=== PATIENT | female | born 1970 | race Caucasian/White ===

== ENCOUNTER 2020-09-16 08:33 | Outpatient (NON) | payer OTHER, SELFPAY ==
[2020-09-16 20:46] LABS: SARS-CoV-2 RNA PCR Negative
== END 2020-09-16 08:34 ==
PROVIDERS: Visit Provider Family Medicine
DX: R68.89 Other general symptoms and signs (principal); Z20.828 Contact with and (suspected) exposure to other viral communicable diseases
CPT/HCPCS: 87635; C9803; U0003

== ENCOUNTER 2020-12-17 17:00 | Outpatient (CLI) | payer OTHER, SELFPAY | END 2020-12-17 17:01 | disposition home or self-care (01) | LOC: ANHCOVIDVC 17:00 | PROVIDERS: PCP Family Medicine; Visit Provider Family Medicine | DX: Z23 Encounter for immunization (principal) | CPT/HCPCS: 0001A; 91300 ==

== ENCOUNTER 2021-01-07 16:48 | Outpatient (CLI) | payer OTHER, SELFPAY | END 2021-01-07 16:49 | disposition home or self-care (01) | LOC: ANHCOVIDVC 16:48 | PROVIDERS: PCP Family Medicine | DX: Z23 Encounter for immunization (principal) | CPT/HCPCS: 0002A; 91300 ==

== ENCOUNTER 2021-07-11 08:22 | Outpatient (CLI) | payer OTHER, SELFPAY ==
--- NOTE | ~2021-07-11 | CT_ITS ---
EXAMINATION: CT abdomen pelvis w con DATE: 07/11/2021 08:41 INDICATION: Unspecified abdominal pain. TECHNIQUE: Computed tomography (CT) of the abdomen and pelvis was performed with 100 mL Omnipaque 350 intravenous contrast. Automated exposure control and iterative reconstruction technique were employe d. The dose-length product was 726.53 mGy-cm. COMPARISON: CT abdomen and pelvis 11/09/2016 FINDINGS: The visualized portions of the lung bases demonstrate mild atelectasis. No pleural effusion . The heart size is normal. No pericardial effusion. There is a moderate-sized sliding hiatal hernia. The liver, spleen, gallbladder, pancreas, adrenal glands, and right kidney are normal. There is a 5 mm cyst in left kidney. There are scattered diverticula in the colon. There is fat stranding around a diverticulum of sigmoid colon with local bowel wall thickening, consistent with diverticulitis. The appendix is normal. There are no dilated loops of bowel. There are no pathologically enlarged lymph n odes. There is trace pelvic ascites. There is severe lower lumbar spondylosis. IMPRESSION: 1. Acute sigmoid diverticulitis. No perforation or abscess. 2. Moderate-sized sliding hiatal hernia. Reviewed, dictated and finalized at location A.
[2021-07-11 09:21] LABS: Basophils Percent Auto 0.4 % (0.2-1.2); Eosinophils Absolute Auto 0.1 K/mm3 (0-0.3); Eosinophils Percent Auto 1.1 % (0-4.4); Hematocrit 41.7 % (37.0-47.0); Hemoglobin 14.1 g/dL (12.0-15.0); Immature Granulocyte Absolute 0.09 K/mm3 (0.00-0.031); Lymphocytes Absolute Auto 1.09 K/mm3 (0.9-3.2); Lymphocytes Percent Auto 11.8 % (18.3-44.2); Mean Corpuscular HGB Conc 33.8 g/dl (32-36); Mean Corpuscular Hemoglobin 32.3 pg (26-34); Mean Corpuscular Volume 95.4 fl (80-100); Mean Platelet Volume 9.4 fl (7.4-10.4); Monocytes Absolute Auto 0.8 K/mm3 (0.1-0.6); Monocytes Percent Auto 8.3 % (2.6-8.5); Neutrophils Absolute Auto 7.1 K/mm3 (1.3-6.7); Neutrophils Percent Auto 77.4 % (45.5-73.1); Platelet Count Result 174 k/mm3 (150-375); Red Blood Count 4.37 M/mm3 (4.2-5.4); Red Cell Distribution Width 11.7 % (11.5-14.5); White Blood Count 9.2 K/mm3 (4.5-10.0)
[2021-07-11 09:32] LABS: Alanine Aminotransferase 57 U/L (4-35); Albumin Level 4.4 g/dL (3.5-5.1); Alkaline Phosphatase 59 U/L (38-126); Anion Gap 8 mmol/L (8-16); Aspartate Amino Transferase 37 U/L (14-36); Bilirubin,Total 0.7 mg/dL (0.2-1.3); Blood Urea Nitrogen 12 mg/dL (7-17); Calcium 9.3 mg/dL (8.4-10.2); Carbon Dioxide 25 mmol/L (22-30); Chloride 103 mmol/L (98-107); Estimated Glomerular Filt Rate > 60; Glucose 94 mg/dL (65-110); Potassium 4.1 mmol/L (3.4-5.0); Sodium 136 mmol/L (137-145)
== END 2021-07-11 08:23 | disposition home or self-care (01) ==
PROVIDERS: PCP Family Medicine; Visit Provider Family Medicine
DX: R10.9 Unspecified abdominal pain (principal); K44.9 Diaphragmatic hernia without obstruction or gangrene; K57.32 Diverticulitis of large intestine without perforation or abscess without bleeding
CPT/HCPCS: 36415; 74177; 80053; 85025; Q9967

== ENCOUNTER 2021-09-13 14:49 | Inpatient (IN) | payer OTHER, SELFPAY ==
[2021-09-13] VITALS (13 sets, daily range): BP systolic 118–167; BP diastolic 78–102; PULSE 78–88; RESP 16–18; TEMP 36–37.3; O2SAT 96–99; BMI 27.6
--- NOTE | ~2021-09-13 | CT_ITS ---
EXAMINATION: CT abdomen pelvis w con DATE: 09/13/2021 15:56 INDICATION: Right lower quadrant abdominal pain TECHNIQUE: Computed tomography (CT) of the abdomen and pelvis was performed with 100 cc Omnipaque 350 intravenous contrast. The dose-length product was 763.08 mGy-cm. Automated exposure control and iter ative reconstruction technique were employed. COMPARISON: CT dated 07/11/2021. FINDINGS: There is moderate scattered free air in the abdomen and pelvis. Lung bases are unremarkable. There is moderate size hiatal hernia. Fatty infiltration of the liver. T he spleen, pancreas, adrenal glands and kidneys are unremarkable. Normal appendix. Small fat-containi ng umbilical hernia. There is colonic diverticulosis without evidence for acute diverticulitis. No si gnificant vascular abnormality. No lymphadenopathy. Gallbladder is present. IMPRESSION: 1. Moderate free air intraperitoneal air of the abdomen and pelvis presumably from perforated bowel, although no identifiable source is seen. Dr. Lambert Diggs discussed with Dr. Jaren Hsu MD at 09/13/2021 16:05 [employer]. Reviewed, dictated and finalized at location A. K [employer]ING CHECKER IMPRESSION: 1. Moderate free air intraperitoneal air of the abdomen and pelvis presumably f rom perforated bowel, although no identifiable source is seen. Dr. Lambert Diggs discussed with Dr. Jaren Hsu MD at 09/13/2021 16:05 [employer] .
[2021-09-13 15:27] LABS: Basophils Percent Auto 0.2 % (0.2-1.2); Eosinophils Percent Auto 0.4 % (0-4.4); Hematocrit 42.5 % (37.0-47.0); Hemoglobin 14.5 g/dL (12.0-15.0); Immature Granulocyte Absolute 0.05 K/mm3 (0.00-0.031); Immature Granulocyte Percent A 0.5 % (0-0.5); Lymphocytes Absolute Auto 1.19 K/mm3 (0.9-3.2); Lymphocytes Percent Auto 11.4 % (18.3-44.2); Mean Corpuscular HGB Conc 34.1 g/dl (32-36); Mean Corpuscular Hemoglobin 31.7 pg (26-34); Mean Platelet Volume 9.2 fl (7.4-10.4); Monocytes Absolute Auto 0.6 K/mm3 (0.1-0.6); Monocytes Percent Auto 5.5 % (2.6-8.5); Neutrophils Absolute Auto 8.6 K/mm3 (1.3-6.7); Platelet Count Result 188 k/mm3 (150-375); Red Blood Count 4.57 M/mm3 (4.2-5.4); Red Cell Distribution Width 11.3 % (11.5-14.5); White Blood Count 10.4 K/mm3 (4.5-10.0)
[2021-09-13 15:37] LABS: Alanine Aminotransferase 60 U/L (4-35); Albumin Level 4.8 g/dL (3.5-5.1); Alkaline Phosphatase 64 U/L (38-126); Anion Gap 10 mmol/L (8-16); Aspartate Amino Transferase 42 U/L (14-36); Bilirubin,Total 0.7 mg/dL (0.2-1.3); Blood Urea Nitrogen 16 mg/dL (7-17); Calcium 9.6 mg/dL (8.4-10.2); Carbon Dioxide 25 mmol/L (22-30); Chloride 102 mmol/L (98-107); Estimated CRCL calculation 73 ml/min; Estimated Glomerular Filt Rate > 60; Glucose 102 mg/dL (65-110); Lipase 88 U/L (23-300); Potassium 3.6 mmol/L (3.4-5.0); Sodium 137 mmol/L (137-145)
--- NOTE | 2021-09-13 16:25 | ED.GENADULT ---
HPI - General Adult General Chief complaint: Abdominal Pain Stated complaint: abdominal pain Time Seen by Provider: 09/13/21 15:10 History of Present Illness HPI narrative: Patient is a 51-year-old female who presents ER with right lower quadrant abdominal pain. Reports she was diagnosed with diverticulitis 2 months ago. She had taken a course of antibiotics. Symptoms returned earlier in the month and she took another round of antibiotics. She been doing well until yesterday when she started developing an upset stomach. Periumbilical and then radiating down his right lower quadrant today. She took 1 doses Afaxin without relief. No fevers or chills or sweats. No pressure radiating into her rectum. No diarrhea. Related Data Home Medications Medication Instructions Recorded Confirmed famotidine-Ca carb-mag hydrox 1 tablet PO DAILY PRN 09/13/21 09/13/21 [Pepcid Complete] ferrous sulfate [Iron (ferrous 60 mg PO DAILY 09/13/21 09/13/21 sulfate)] vitamin A-vitamin C-vit E-min 1 tablet PO DAILY 09/13/21 09/13/21 [Ocuvite] vitamin B complex [B 1,000 tablet PO DAILY 09/13/21 09/13/21 Complex-Vitamin B12] Allergies Allergy/AdvReac Type Severity Reaction Status Date / Time No Known Allergies Allergy Verified 09/13/21 14:58 Review of Systems Review of Systems: All systems reviewed & are unremarkable except as noted in HPI and below Constitutional: Constitutional: Denies chills, Denies fever(s) and Denies weakness Respiratory: Respiratory: Denies cough and Denies dyspnea Gastrointestinal: Gastrointestinal: Reports abdominal pain, Denies diarrhea, Denies nausea and Denies vomiting Genitourinary: Genitourinary: Denies nocturia, Denies dysuria and Denies flank pain PMF Past Medical History Medical History (Updated 09/13/21 @ 18:40 by Jaren Hsu MD) Abdominal pain Sigmoid diverticulitis Surgical History Surgical History (Updated 09/13/21 @ 18:38 by Jaren Hsu MD) No history of previous surgery Social History Social History Smoking status: Never smoker Alcohol intake: current Drinks per week: 1 Substance use: never Spiritual care concerns: No Exam Narrative: GENERAL: Well-appearing, well-nourished, and in no acute distress. HEAD: Normocephalic, atraumatic. CHEST: Clear to auscultation. No respiratory distress. HEART: Regular rate and rhythm. Normal peripheral pulses. ABDOMEN: Soft, mild to moderate tenderness bilateral lower quadrant right greater than left with mild right lower quadrant guarding, nondistended, normal active bowel sounds. EXTREMITIES: Normal range of motion. No edema. SKIN: Warm, dry, no rash. NEURO: Alert and oriented x3. PSYCH: Normal mood and affect. Course Course Emergency Course: Patient and family informed results. Discussed case with general surgery who will take the patient primarily on their service. Patient started on IV Zosyn. We will keep n.p.o. and hydrate. Vital Signs Vital signs: Vital Signs Temperature 99.1 F 09/13/21 14:55 Pulse Rate 81 09/13/21 14:55 Respiratory Rate 16 09/13/21 14:55 Blood Pressure 167/102 H 09/13/21 14:55 Pulse Oximetry 99 09/13/21 14:55 Temperature 97.7 F 09/13/21 17:56 Pulse Rate 88 09/13/21 17:56 Respiratory Rate 18 09/13/21 17:56 Blood Pressure 125/80 09/13/21 17:56 Pulse Oximetry 99 09/13/21 17:56 Medical Decision Making Vital Signs Vital Signs: Vital Signs Temperature 99.1 F 09/13/21 14:55 Pulse Rate 81 09/13/21 14:55 Respiratory Rate 16 09/13/21 14:55 Blood Pressure 167/102 H 09/13/21 14:55 Pulse Oximetry 99 09/13/21 14:55 Temperature 97.7 F 09/13/21 17:56 Pulse Rate 88 09/13/21 17:56 Respiratory Rate 18 09/13/21 17:56 Blood Pressure 125/80 09/13/21 17:56 Pulse Oximetry 99 09/13/21 17:56 Lab Data Result diagrams: 09/13/21 15:18 09/13/21 15:18
[2021-09-13 16:47] LABS: Add Urine Microscopic? YES; Appearance Urine Clear (Clear); Bilirubin Urine Negative (Negative); Blood Urine Negative (Negative); Color Urine Straw (Yellow); Glucose Urine UA Negative (Negative); Ketones Urine Trace mg/dL (Negative); Leukocyte Esterase Ur 1+ LEU/UL (Negative); Mucus Urine Rare /lpf; Nitrate Urine Negative (Negative); Protein Urine Negative (Negative); Squamous Epithelial Cell Urine Occasional /hpf (Few); Urobilinogen Urine Negative mg/dL (<2.0); WBC Urine 0-3 /hpf
--- NOTE | 2021-09-13 16:55 | PM.IMHP ---
H&P: HPI History of Present Illness Date/Time: 09/13/21 16:55 The patient is a 51-year-old female presenting to the emergency department complaining of abdominal pain. The patient reports the pain started yesterday and has been progressively worsening in nature. The patient reports the pain is mostly located in the right lower quadrant and epigastrium. She reports the pain has been associated with some nausea and poor appetite. The patient had been recently diagnosed with acute diverticulitis that improved with conservative management. The patient reports she has not quite felt normal since that episode. The patient reports that the pain during the diverticulitis was in her left lower quadrant and is different from the pain she is experiencing now. Chief Complaint: abdominal pain Review of Systems Constitutional: Constitutional: Denies anorexia, Denies chills, Reports fatigue, Denies fever(s), Denies increased appetite, Denies lethargy, Denies malaise, Reports poor appetite, Denies weakness, Denies weight gain and Denies weight loss Eyes: Eyes: Reports no additional eye complaints ENT: Reports system reviewed and no additional complaints, except as documented Cardiovascular: Cardiovascular: Reports no additional cardiovascular complaints Respiratory: Respiratory: Reports no additional respiratory complaints Gastrointestinal: Gastrointestinal: Reports as per HPI, Reports abdominal pain, Denies belching, Denies bloating, Denies change in bowel habits, Denies change in stool character, Denies constipation, Reports GI cramping, Reports heartburn, Denies diarrhea, Denies loose stools, Reports nausea and Denies vomiting Genitourinary: Genitourinary: Reports no additional female genitourinary complaints Musculoskeletal: Musculoskeletal: Reports no additional musculoskeletal complaints Integumentary/Breasts: Skin/Breast: Reports system reviewed and no additional complaints, except as docu Neurologic: Reports system reviewed and no additional complaints, except as documented Psychiatric: Psychiatric: Reports no additional psychiatric complaints Endocrine: Endocrine: Reports no additional endocrine complaints Hematologic/Lymphatic: Hematologic/Lymphatic: Reports no additional hematologic/lymphatic complaints Allergic/Immunologic: Allergic/Immunologic: Reports no additional allergic/immunologic complaints PMFSH Past Medical History Medical History Abdominal pain Sigmoid diverticulitis Social History Social History Smoking status: Never smoker Alcohol intake: current Drinks per week: 1 Substance use: never Spiritual care concerns: No Comments Surgical history - no abdominal surgeries FH - no h/o colorectal cancers, IBD SH - denies tobacco, ilicit drug use Meds Home Medications and Allergies Home Medications Medication Instructions Recorded Confirmed Type lansoprazole 30 mg capsule,delayed 30 mg PO BID #180 cap 05/13/20 09/13/21 Rx release famotidine-Ca carb-mag hydrox 1 tablet PO DAILY PRN 09/13/21 09/13/21 History [Pepcid Complete] ferrous sulfate [Iron (ferrous 60 mg PO DAILY 09/13/21 09/13/21 History sulfate)] vitamin A-vitamin C-vit E-min 1 tablet PO DAILY 09/13/21 09/13/21 History [Ocuvite] vitamin B complex [B 1,000 tablet PO DAILY 09/13/21 09/13/21 History Complex-Vitamin B12] Allergies Allergy/AdvReac Type Severity Reaction Status Date / Time No Known Allergies Allergy Verified 09/13/21 14:58 Vital Signs Vital Signs - 24 hr 09/13/21 14:55 Temperature 37.3 C Pulse Rate 81 Respiratory Rate 16 Blood Pressure 167/102 H Pulse Oximetry 99 Exam Const: General: cooperative, healthy appearing, no acute distress and tired appearing Nutritional Appearance: overweight Orientation/consciousness: patient oriented x3 Limitations: no limitations HENMT: Head: nor
[2021-09-13] MEDS: SODIUM CHLORIDE 0.9% IV 1,000 ML 125 ML IV CONT ×2 (17:01→18:02)
[2021-09-13 17:07] LABS: Specific Grav Ur 1.047 (1.001-1.035)
[2021-09-13] MEDS: MELATONIN 5 MG TABLET PO (21:59)
[2021-09-13] MEDS: MORPHINE SULFATE (*CRX) 4 MG/ML INJ IV PUSH (22:06)
[2021-09-13] MEDS: ONDANSETRON INJ 4 MG/2 ML VIAL IV PUSH (22:08)
[2021-09-14] MEDS: SODIUM CHLORIDE 0.9% IV 1,000 ML 125 ML IV CONT (02:57)
[2021-09-14 03:52] VITALS: BP 104/57; PULSE 77; RESP 17; TEMP 37.1; O2SAT 96
[2021-09-14 05:34] LABS: Basophils Percent Auto 0.3 % (0.2-1.2); Eosinophils Absolute Auto 0.1 K/mm3 (0-0.3); Eosinophils Percent Auto 0.6 % (0-4.4); Hematocrit 38.3 % (37.0-47.0); Hemoglobin 12.9 g/dL (12.0-15.0); Immature Granulocyte Absolute 0.05 K/mm3 (0.00-0.031); Immature Granulocyte Percent A 0.6 % (0-0.5); Lymphocytes Absolute Auto 0.82 K/mm3 (0.9-3.2); Lymphocytes Percent Auto 10.4 % (18.3-44.2); Mean Corpuscular HGB Conc 33.7 g/dl (32-36); Mean Corpuscular Hemoglobin 31.8 pg (26-34); Mean Corpuscular Volume 94.3 fl (80-100); Mean Platelet Volume 9.1 fl (7.4-10.4); Monocytes Absolute Auto 0.6 K/mm3 (0.1-0.6); Monocytes Percent Auto 7.2 % (2.6-8.5); Neutrophils Absolute Auto 6.4 K/mm3 (1.3-6.7); Neutrophils Percent Auto 80.9 % (45.5-73.1); Platelet Count Result 158 k/mm3 (150-375); Red Blood Count 4.06 M/mm3 (4.2-5.4); Red Cell Distribution Width 11.3 % (11.5-14.5); White Blood Count 7.9 K/mm3 (4.5-10.0)
[2021-09-14 06:02] LABS: Anion Gap 6 mmol/L (8-16); Blood Urea Nitrogen 9 mg/dL (7-17); Calcium 8.7 mg/dL (8.4-10.2); Carbon Dioxide 26 mmol/L (22-30); Chloride 106 mmol/L (98-107); Estimated CRCL calculation 73 ml/min; Estimated Glomerular Filt Rate > 60; Glucose 97 mg/dL (65-110); Potassium 3.8 mmol/L (3.4-5.0); Sodium 138 mmol/L (137-145)
--- NOTE | 2021-09-14 08:15 | PM.DS ---
DS: Admitting Diagnosis Discharge Date 09/14/2021 Admitting Diagnosis abdominal pain, perforated intra-abdominal viscus DS: Discharge Diagnosis Discharge Diagnosis (1) Perforated abdominal viscus: Code(s): R19.8 - Other specified symptoms and signs involving the digestive system and abdomen Status: Acute Assessment and Plan: benign exam, tolerating diet and having normal bowel function, home with p.o. antibiotics, plan for repeat imaging in the next week, follow-up after repeat CT DS: Summary Hospital Course Reason for hospitalization: perforated intra-abdominal viscus Hospital Course: The patient is a 51-year-old female presenting to the emergency department complaining right-sided abdominal pain. Workup in the emergency department, including CT scan, was significant for perforated intra-abdominal viscus. Given these findings, added to the surgical service, NPO, and started on IV antibiotics. Over the next day, the patient reports significant improvement of her abdominal pain. She was started on a diet, which she tolerated without issue. The patient has been up and ambulating without issue. The patient reports minimal to no pain and has really not received any analgesia. At this time, the patient will be discharged home with p.o. antibiotics. Plan is for repeat imaging in the next week. Will follow up with me after imaging. Status at Discharge Functional status at discharge: independent ambulation Overall status at discharge: patient is progressing back to baseline Time Spent with Patient Time attestation: Total time spent providing and/or coordinating discharge services: Time spent: Less than 30 minutes Exam Const: General: cooperative, comfortable and no acute distress Nutritional Appearance: overweight Orientation/consciousness: patient oriented x3 Limitations: no limitations Neck: Neck: normal visual inspection, full ROM and no lymphadenopathy Chest: Chest palpation & inspection: normal inspection of the chest Resp: Effort & Inspection: normal respiratory effort Auscultation: clear to auscultation bilaterally Cardio: Jugular venous distension: no JVD Rate: regular rate Rhythm: regular rhythm GI: Inspection: normal to inspection and non-distended GI Palp: No abdominal tenderness, Yes Soft to palpation, Yes Tenderness to palpation present (GI), No Guarding due to palpation present (GI) and No Rigid due to palpation Other: minimal TTP RUQ DS: Data Data Completed and Pending Labs on day of discharge: Labs from last 24 hours 09/14/21 09/14/21 09/13/21 05:15 05:15 16:38 WBC 7.9 RBC 4.06 L Hgb 12.9 Hct 38.3 MCV 94.3 MCH 31.8 MCHC 33.7 RDW 11.3 L Plt Count 158 MPV 9.1 Immature Gran % (Auto) 0.6 H Neut % (Auto) 80.9 H Lymph % (Auto) 10.4 L Wink[place] % (Auto) 7.2 Eos % (Auto) 0.6 Baso % (Auto) 0.3 Lymph # (Auto) 0.82 L [place]ink[place] # (Auto) 0.6 Eos # (Auto) 0.1 Baso # (Auto) 0.0 Abs Immat Gran (auto) 0.05 H Absolute Neuts (auto) 6.4 Absolute Nucleated RBC 0.0 Nucleated RBC % 0.0 Sodium 138 Potassium 3.8 Chloride 106 Carbon Dioxide 26 Anion Gap 6 L BUN 9 D Creatinine 0.80 Estim Creat Clear Calc 73 Estimated GFR > 60 Glucose 97 Calcium 8.7 Total Bilirubin AST ALT Alkaline Phosphatase Total Protein Albumin Lipase Urine Color Straw Urine Appearance Clear Urine pH 5.0 Ur Specific [place] 1.047 H Urine Protein Negative Urine Glucose (UA) Negative Urine Ketones Trace Ur Blood (Man) Negative Urine Nitrate Negative Urine Bilirubin Negative Urine Urobilinogen Negative Leukocyte Esterase Rfl 1+ H Urine RBC 3-5 H Urine WBC 0-3 Ur Squamous Epith Cells Occasional Urine Mucus Rare 09/13/21 09/13/21 15:18 15:18 WBC 10.4 H RBC 4.57 Hgb 14.5 Hct 42.5 MCV 93.0 MCH 31.7 MCHC 34[address]
== END 2021-09-14 13:17 | disposition home or self-care (01) | DRG 392 ==
LOC: ANHED 15:36 → ANH2MED 17:06
PROVIDERS: Admitting Provider Surgery; Emergency Provider Emergency Medicine; PCP Family Medicine; Visit Provider Surgery
DX: R19.8 Other specified symptoms and signs involving the digestive system and abdomen (principal); Z28.21 Immunization not carried out because of patient refusal; Z79.899 Other long term (current) drug therapy; Z87.19 Personal history of other diseases of the digestive system
CPT/HCPCS: 36415; 74177; 80048; 80053; 81001; 83690; 85025; 96375; 99285; A9270; G0378; J0131; J2270; J2405; J2543; J7030; Q9967

== ENCOUNTER 2021-12-15 11:15 | Outpatient (CLI) | payer OTHER, SELFPAY ==
[2021-12-15 12:09] LABS: Free T4 Free Thyroxine 0.85 ng/mL (0.78-2.19); Vitamin D 25 Hydroxy 71.3 ng/mL
[2021-12-15 12:21] LABS: Thyroid Stimulating Hormone 0.868 uIU/mL (0.465-4.680)
[2021-12-15 12:44] LABS: Vitamin B12 > 1000.0 pg/mL (239-931)
[2021-12-18 04:16] LABS: Triiodothyronine T3 Free 3.4 pg/mL (2.3-4.2)
== END 2021-12-15 11:16 | disposition home or self-care (01) ==
PROVIDERS: PCP Family Medicine; Visit Provider Family Medicine
DX: E55.9 Vitamin D deficiency, unspecified (principal); R53.83 Other fatigue; E53.8 Deficiency of other specified B group vitamins
CPT/HCPCS: 36415; 82306; 82607; 84439; 84443; 84481

== ENCOUNTER 2022-01-23 09:15 | Outpatient (CLI) | payer OTHER, SELFPAY ==
--- NOTE | ~2022-01-23 | XR_ITS ---
EXAMINATION: [id number], XR foot RT min 3V EXAM DATE: 01/23/2022 09:43 INDICATION: Right foot pain, no known recent injury. TECHNIQUE: Right foot standing dorsoplantar, lateral and oblique projections obtained and reviewed. Right foot nonweightbearing dorsal plantar, oblique, lateral projections. There is no prior study for comparison. FINDINGS: Right metatarsal bones unremarkable. There is tiny inferior calcaneal spur. There are no bony erosions identified. There is mild 1st metatarsophalangeal joint primary osteoarthritis. Pes pl anus on the standing weight-bearing projection. There are no acute fractures or dislocations identifi ed. There is no subcutaneous gas. The soft tissue is unremarkable. There are no radiopaque foreig n bodies. IMPRESSION: 1. 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 2. Pes planus. 3. Tiny inferior calcaneal spur. Reviewed, dictated and finalized at location A. IMPRESSION: 1. 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 2. Pes planus. 3. Tiny inferior calcaneal spur.
== END 2022-01-23 09:16 | disposition home or self-care (01) ==
LOC: ANHIMG 09:18
PROVIDERS: PCP Family Medicine; Visit Provider Family Medicine
DX: M79.671 Pain in right foot (principal); M21.41 Flat foot [pes planus] (acquired), right foot; M19.071 Primary osteoarthritis, right ankle and foot
CPT/HCPCS: 73630

== ENCOUNTER → 2022-02-06 17:57 | Outpatient (CLI) | payer OTHER, SELFPAY ==
--- NOTE | ~2022-02-06 | DEXA_ITS ---
Bone Density Report Name: HEBER ANSARI Age: 51 Sex: Female Ethnicity: White Date of : 1970 Indication: postmenopausal; screening for osteoporosis; Referring Provider: JOANIE BA Study: Bone densitometry was performed. Exam Date: February 06, 2022 Accession number: [id number] Bone Density: Region BMD T-score Z-score Classification AP Spine (L1-L4) 1.026 -0.2 0.7 Normal Femoral Neck (Left) 0.812 -0.3 0.5 Normal Total Hip (Left) 0.975 0.3 0.8 Normal Femoral Neck (Right) 0.783 -0.6 0.2 Normal Total Hip (Right) 0.950 0.1 0.6 Normal Total Hip Mean 0.963 0.2 0.7 Normal World Health Organization criteria for BMD impression classify patients as: Normal (T-score at or above -1.0), Osteopenia (T-score between -1.0 and -2.5), or Osteoporosis (T-score at or below -2.5). 10-year Fracture Risk: FRAX not reported because: All T-scores for Spine Total, Hip Total, Femoral Neck at or above -1.0 Clinical Information Provided by Patient: Has used the following medications: Vitamin D Patient maximum height was 68.7 Menopause Age: 50 Drinks caffeinated beverages Onset of menses at age 12 Number of children 3 Impression: The patient has normal bone mass. Discussion: BONE DENSITY IS ABOVE THE MINIMUM DESIRABLE LEVEL AT ALL SKELETAL SITES TESTED. This patient?s bone mineral density is above the minimum desirable level (T-score -1.0 or better) at all sites measured. The patient should follow a healthful lifestyle (good nutrition with adequate calcium and vitamin D, and appropriate weight-bearing exercise). Follow-Up: Consider repeating this study in 5 years or sooner if there is some new clinical indication. Reported by: MELO on 02/06/2022 6:34:00 PM. Reviewed, dictated and finalized at location AFrancois [facility]
== END ==
PROVIDERS: PCP Family Medicine; Visit Provider Obstetrics & Gynecology Gynecology
DX: Z13.820 Encounter for screening for osteoporosis (principal); Z78.0 Asymptomatic menopausal state
CPT/HCPCS: 77080

== ENCOUNTER → 2022-03-09 10:23 | Outpatient (CLI) | payer OTHER, SELFPAY ==
--- NOTE | ~2022-03-09 | MM_ITS ---
EXAMINATION: MM screening earnest BI w donna HISTORY: Screening mammogram TECHNIQUE: Craniocaudal and mediolateral oblique 3-D tomosynthesis images were obtained and synthetic 2-D images were generated. CAD analysis was submitted and interpreted. COMPARISON: 08/30/2019 diagnostic right mammogram 09/05/2019 bilateral screening mammogram 04/18/2018 bilateral diagnostic mammogram BREAST PARENCHYMAL COMPOSITION: The breasts are almost entirely fatty. FINDINGS: There is no evidence of suspicious mass, calcification, or architectural distortion to sugg est malignancy in either breast. There has been no suspicious interval change. IMPRESSION: 1. No mammographic evidence of malignancy. 2. Recommend routine screening mammography in one year. BI-RADS Category 1: Negative Reviewed, dictated and finalized at location A.
== END ==
PROVIDERS: PCP Family Medicine; Visit Provider Obstetrics & Gynecology Gynecology
DX: Z12.31 Encounter for screening mammogram for malignant neoplasm of breast (principal)
CPT/HCPCS: 77063; 77067

== ENCOUNTER 2022-09-14 11:02 | Outpatient (CLI) | payer OTHER, SELFPAY ==
[2022-09-14 19:53] LABS: Hematocrit 44.3 % (37.0-47.0); Hemoglobin 14.4 g/dL (12.0-15.0); Mean Corpuscular HGB Conc 32.5 g/dl (32-36); Mean Corpuscular Hemoglobin 30.7 pg (26-34); Mean Corpuscular Volume 94.5 fl (80-100); Mean Platelet Volume 9.6 fl (7.4-10.4); Platelet Count Result 219 k/mm3 (150-375); Red Blood Count 4.69 M/mm3 (4.2-5.4)
[2022-09-14 20:17] LABS: Anion Gap 10 mmol/L (8-16); Blood Urea Nitrogen 16 mg/dL (7-17); Calcium 9.5 mg/dL (8.4-10.2); Carbon Dioxide 26 mmol/L (22-30); Chloride 104 mmol/L (98-107); Estimated Glomerular Filt Rate > 60; Glucose 87 mg/dL (65-110); Potassium 4.6 mmol/L (3.4-5.0); Sodium 140 mmol/L (137-145)
[2022-09-14 20:33] LABS: Vitamin D 25 Hydroxy 42.4 ng/mL
== END 2022-09-14 11:03 | disposition home or self-care (01) ==
LOC: ANHGOSHLAB 11:04
PROVIDERS: PCP Family Medicine; Visit Provider Family Medicine
DX: R53.83 Other fatigue (principal); E53.8 Deficiency of other specified B group vitamins; E55.9 Vitamin D deficiency, unspecified
CPT/HCPCS: 36415; 80048; 82306; 82607; 84443; 85027

== ENCOUNTER → 2023-07-29 12:31 | Outpatient (CLI) | payer OTHER, SELFPAY ==
--- NOTE | ~2023-07-29 | MM_ITS ---
EXAMINATION: MM screening earnest BI w donna HISTORY: Screening mammogram TECHNIQUE: Craniocaudal and mediolateral oblique 3-D tomosynthesis images were obtained and synthetic 2-D images were generated. CAD analysis was submitted and interpreted. COMPARISON: 03/09/2022, bilateral screening mammogram 09/16/2019 diagnostic right mammogram 09/05/2019 bilateral screening mammogram BREAST PARENCHYMAL COMPOSITION: FINDINGS: There is no evidence of suspicious mass, calcification, or architectural distortion to sugg est malignancy in either breast. There has been no suspicious interval change. IMPRESSION: 1. No mammographic evidence of malignancy. 2. Recommend routine screening mammography in one year. BI-RADS Category 1: Negative Reviewed, dictated and finalized at location A.
== END ==
PROVIDERS: PCP Obstetrics & Gynecology; Visit Provider Obstetrics & Gynecology
DX: Z12.31 Encounter for screening mammogram for malignant neoplasm of breast (principal)
CPT/HCPCS: 77063; 77067

== ENCOUNTER 2023-07-29 13:13 | Outpatient (CLI) | payer OTHER, SELFPAY ==
[2023-07-29 15:00] LABS: Basophils Percent Auto 0.7 % (0.2-1.2); Eosinophils Absolute Auto 0.1 K/mm3 (0-0.3); Eosinophils Percent Auto 1.9 % (0-4.4); Hematocrit 44.2 % (37.0-47.0); Hemoglobin 14.5 g/dL (12.0-15.0); Immature Granulocyte Absolute 0.08 K/mm3 (0.00-0.031); Immature Granulocyte Percent A 1.4 % (0-0.5); Lymphocytes Absolute Auto 1.39 K/mm3 (0.9-3.2); Lymphocytes Percent Auto 24.6 % (18.3-44.2); Mean Corpuscular HGB Conc 32.8 g/dl (32-36); Mean Corpuscular Hemoglobin 30.5 pg (26-34); Mean Corpuscular Volume 93.1 fl (80-100); Mean Platelet Volume 9.3 fl (7.4-10.4); Monocytes Absolute Auto 0.4 K/mm3 (0.1-0.6); Monocytes Percent Auto 7.6 % (2.6-8.5); Neutrophils Absolute Auto 3.6 K/mm3 (1.3-6.7); Neutrophils Percent Auto 63.8 % (45.5-73.1); Platelet Count Result 235 k/mm3 (150-375); Red Blood Count 4.75 M/mm3 (4.2-5.4); Red Cell Distribution Width 11.8 % (11.5-14.5); White Blood Count 5.7 K/mm3 (4.5-10.0)
[2023-07-29 16:30] LABS: Vitamin D 25 Hydroxy 88.6 ng/mL
[2023-07-29 17:03] LABS: Iron 107 ug/dL (37-170)
[2023-07-29 17:20] LABS: Percent Iron Saturation 32 % (20-50)
[2023-07-29 19:34] LABS: Alanine Aminotransferase 33 U/L (6-35); Albumin Level 4.8 g/dL (3.5-5.1); Alkaline Phosphatase 59 U/L (38-126); Anion Gap 6 mmol/L (8-16); Aspartate Amino Transferase 30 U/L (14-36); Bilirubin,Total 0.6 mg/dL (0.2-1.3); Blood Urea Nitrogen 22 mg/dL (7-17); Carbon Dioxide 30 mmol/L (22-30); Chloride 102 mmol/L (98-107); Estimated Glomerular Filt Rate > 60; Glucose 70 mg/dL (65-110); Potassium 4.2 mmol/L (3.4-5.0); Sodium 138 mmol/L (137-145)
[2023-07-29 20:01] LABS: Thyroid Stimulating Hormone 0.933 uIU/mL (0.465-4.680)
[2023-08-01 16:24] LABS: Testosterone Free 1.8 pg/mL (0.1-6.4); Testosterone Total 21 ng/dL (2-45)
== END 2023-07-29 13:14 | disposition home or self-care (01) ==
PROVIDERS: PCP Obstetrics & Gynecology; Visit Provider Family Medicine
DX: D64.9 Anemia, unspecified (principal); E53.8 Deficiency of other specified B group vitamins; R53.83 Other fatigue; R68.82 Decreased libido; E55.9 Vitamin D deficiency, unspecified
CPT/HCPCS: 36415; 80053; 82306; 82607; 83540; 83550; 84402; 84403; 84443; 85025

== ENCOUNTER 2023-09-20 08:49 | Outpatient (CLI) | payer OTHER, SELFPAY ==
--- NOTE | ~2023-09-20 | MR_ITS ---
MRI of the right knee Clinical history: Lateral meniscus tear Technique: Coronal proton density and proton density-weighted images, sagittal proton-density and T2 fat-sat images, and axial proton-density fat-saturated images were acquired. Findings: Anterior and posterior cruciate ligaments are intact. Medial collateral ligament and the la teral collateral again compress are intact. Popliteus tendon is intact. Medial meniscus is intact, without evidence of tear. There is horizontal tear involving the anterior horn and body of the lateral meniscus, and possibly extending into the posterior horn as well. Articular cartilage is well preserved throughout the knee. Bone marrow signals are unremarkable. Mini mal lateral joint line osteophytes are present. Extensor mechanism is intact. No significant joint effusion or Anaya's cyst. Impression: Horizontal tear of the anterior horn and body of the lateral meniscus, with possible extension to the posterior horn as well. Minimal lateral joint line osteophytes. Reviewed, dictated and finalized at [facility]. CHECKER Impression: Horizontal tear of the anterior horn and body of the lateral meniscus, with pos sible extension to the posterior horn as well. Minimal lateral joint line osteophytes.
== END 2023-09-20 08:50 ==
PROVIDERS: PCP Family Medicine; Visit Provider Orthopaedic Surgery
DX: S83.281A Other tear of lateral meniscus, current injury, right knee, initial encounter (principal); X58.XXXA Exposure to other specified factors, initial encounter
CPT/HCPCS: 73721

== ENCOUNTER 2023-10-08 14:00 | Outpatient (RCR) | payer OTHER, SELFPAY ==
--- NOTE | 2023-09-29 09:58 | OPREHPOC ---
Outpatient Therapy Plan of Care This is a Multidisciplinary Plan of Care that may contain components documented by all disciplines (PT, OT, and ST.) PT Problem 1 PT Problem #1 Knowledge Deficit PT Goal 1 Goal 1. Patient will perform independent HEP Target Visit 8 PT Problem 2 PT Problem #2 Pain PT Goal 1 Goal 1. Patient able to do all work and exercise activities without pain Target Visit 8 PT Problem 3 PT Problem #3 Impaired Strength PT Goal 1 Goal 1. Good knee alignment bilaterally with single limb step down Target Visit 8
--- NOTE | 2023-09-29 09:58 | PTOPEVAL1 ---
Assessment and note entered by Meredith Stephens DPT Evaluation Information Assessment Status Evaluation Subjective Information Pt reports she has R knee pain ongoing for several years, especially with twisting motions like getting out of the car. Noticed it got worse after starting weight training, saw Dr. Khan who diagnosed a meniscal tear and gave her an injection (which has helped). No plans for surgery at the moment but may be a candidate. Highest pain recently 3/10 and lowest 0/10. Unable to cross her legs to put shoes on until after the injection. Has not been able to do her normal exercise routine. 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 Returns to MD is not scheduled currently. Patient goal: avoid surgery if possible, see what I can do on my own, get back to normal exercise routine Reported Pain Level Pain Score 0: Self Report Assessment PT Clinical Summary The patient is presenting to skilled therapy with a history of right knee pain. She presents with decreased LE functional strength and tenderness to palpation of joint line. These impairments are contributing to her pain and difficulty with activities like twisting and performing her normal work and exercise activities. She will highly benefit from therapy to address these impairments and return to full function. Plan of Care Interventions Electrical Stimulation,Hot Pack/Cold Pack,Manual Therapy,Neuro Re-education,Patient/Caregiver Education,Therapeutic Activities,Therapeutic Exercise PT Services Indicated Yes Treatment Frequency and 1-2 times a week for 8 visits Duration These treatments will address the objective and functional deficits as defined above. The patient will be advanced safely and appropriately in order for the patient to progress towards his/her prior level of function. Additional exercises will be introduced and as well as a comprehensive home exercise program upon discharge, if needed, ?to ensure carryover of functional gains achieved in the clinic. This treatment plan has been reviewed and agreement upon by the patient.
--- NOTE | 2023-10-14 10:42 | PCPTNOTE ---
Patient called & cancelled scheduled appointment this date due to double booking her appointments.
--- NOTE | 2023-10-20 09:32 | PTOPDC ---
Assessment and note entered by Mariam Jimenez, PT, DPT Evaluation Information Assessment Status Discharge - Pt Not Present Diagnosis R knee pain Subjective Information Pt called and cancelled her remaining appointments d/t scheduling conflicts. Called and followed up with the pt. She states her exercises are helping and she does not need to return to therapy. Assessment PT Clinical Summary Pt was evaluated on 09/29/23 and completed 1 follow up appointment. She will be discharged at this time per pt request.
== END 2023-10-20 14:23 | disposition home or self-care (01) ==
LOC: ANHGOSHPT 14:00
PROVIDERS: PCP Family Medicine; Visit Provider Orthopaedic Surgery
DX: S83.281D Other tear of lateral meniscus, current injury, right knee, subsequent encounter (principal)
CPT/HCPCS: 97110; 97140; 97161; 97530

== ENCOUNTER 2024-04-07 07:32 | Outpatient (CLI) | payer OTHER, SELFPAY ==
--- NOTE | ~2024-04-07 | XR_ITS ---
EXAMINATION: XR chest 2V 04/07/2024 08:34 INDICATION: Vitamin B12 deficiency. PROCEDURE: 2 view chest COMPARISON: No prior studies for comparison. FINDINGS: The lungs are clear. The cardiomediastinal silhouette is within normal limits. There are no pleural effusions. There is no pneumothorax suspected. There is a large hiatal hernia. IMPRESSION: 1: NO ACUTE CARDIOPULMONARY DISEASE. Reviewed, dictated and finalized at location B.
[2024-04-07 08:26] LABS: Alanine Aminotransferase 32 U/L (6-35); Albumin Level 4.8 g/dL (3.5-5.1); Alkaline Phosphatase 61 U/L (38-126); Anion Gap 8 mmol/L (4-12); Aspartate Amino Transferase 30 U/L (14-36); Bilirubin,Total 0.6 mg/dL (0.2-1.3); Blood Urea Nitrogen 21 mg/dL (7-17); CRP < 0.5 mg/dL (<1.0); Calcium 9.3 mg/dL (8.4-10.2); Carbon Dioxide 26 mmol/L (22-30); Chloride 106 mmol/L (98-107); Cholesterol 218 mg/dL (0-200); Estimated Glomerular Filt Rate > 60; Glucose 90 mg/dL (65-110); HDL Direct 51 mg/dL; Potassium 4.1 mmol/L (3.4-5.0); Sodium 140 mmol/L (137-145); Triglycerides 118 mg/dL (<150)
[2024-04-07 08:35] LABS: LDL Cholesterol Direct 136 mg/dL
[2024-04-07 08:41] LABS: Rheumatoid Factor < 12.0 IU/ML (<12)
[2024-04-07 08:47] LABS: Thyroid Stimulating Hormone 0.739 uIU/mL (0.465-4.680)
[2024-04-07 08:51] LABS: Basophils Percent Auto 0.7 % (0.2-1.2); Eosinophils Absolute Auto 0.1 K/mm3 (0-0.3); Eosinophils Percent Auto 1.6 % (0-4.4); Hematocrit 42.9 % (37.0-47.0); Hemoglobin 14.3 g/dL (12.0-15.0); Immature Granulocyte Absolute 0.05 K/mm3 (0.00-0.031); Immature Granulocyte Percent A 1.1 % (0-0.5); Lymphocytes Absolute Auto 0.99 K/mm3 (0.9-3.2); Lymphocytes Percent Auto 22.2 % (18.3-44.2); Mean Corpuscular HGB Conc 33.3 g/dl (32-36); Mean Corpuscular Hemoglobin 30.6 pg (26-34); Mean Corpuscular Volume 91.9 fl (80-100); Mean Platelet Volume 9.3 fl (7.4-10.4); Monocytes Absolute Auto 0.4 K/mm3 (0.1-0.6); Monocytes Percent Auto 7.9 % (2.6-8.5); Neutrophils Percent Auto 66.5 % (45.5-73.1); Platelet Count Result 217 k/mm3 (150-375); Red Blood Count 4.67 M/mm3 (4.2-5.4); Red Cell Distribution Width 11.9 % (11.5-14.5); White Blood Count 4.5 K/mm3 (4.5-10.0)
[2024-04-07 09:34] LABS: Erythrocyte Sedimentation Rate 5 mm/hr (0-20)
[2024-04-07 14:06] LABS: Rapid Plasma Reagin Non-Reactive (NonReactive)
[2024-04-10 11:49] LABS: Angiotensin Converting Enzyme 48 U/L (9-67)
[2024-04-11 06:57] LABS: Reference Lab Test Name Lysozyme
[2024-04-11 06:58] LABS: Reference Lab Test Result 6.3
[2024-04-11 14:09] LABS: NIL 0.04 IU/mL; Quantiferon TB Plus, 1T NEGATIVE (NEGATIVE)
[2024-04-13 22:04] LABS: Treponema pallidum Ab FTA ABS NON-REACTIVE
== END 2024-04-07 07:33 | disposition home or self-care (01) ==
PROVIDERS: PCP Family Medicine
DX: Z13.220 Encounter for screening for lipoid disorders (principal); R53.83 Other fatigue; E53.8 Deficiency of other specified B group vitamins; H20.00 Unspecified acute and subacute iridocyclitis
CPT/HCPCS: 36415; 71046; 80053; 80061; 82164; 82607; 84443; 85025; 85652; 86038; 86039; 86140; 86430; 86480; 86592; 86780

== ENCOUNTER 2024-04-07 13:00 | Outpatient (CLI) | payer OTHER, SELFPAY ==
--- NOTE | ~2024-04-07 | MR_ITS ---
EXAMINATION: MR brain/brain stem wo/w con DATE: 04/07/2024 14:00 INDICATION: Retinal vasculitis. TECHNIQUE: Magnetic resonance imaging (MRI) of the brain and brainstem was performed without and with 14 mL MultiHance intravenous contrast. COMPARISON: None. FINDINGS: There are scattered areas of nonspecific increased T2-weighted signal intensity in the cere bral white matter, which is within normal limits for the patient's age. There is no intracranial hemo rrhage, acute infarction, or abnormal intracranial mass lesion. The ventricles are normal in size. Th e mastoid air cells are normal. There is mucosal thickening in the paranasal sinuses. The orbits are normal. IMPRESSION: 1. Normal aging brain. Reviewed, dictated and finalized at location A. IMPRESSION: 1. Normal aging brain.
--- NOTE | ~2024-04-07 | MR_ITS ---
EXAMINATION: MRA brain wo con DATE: 04/07/2024 13:57 INDICATION: Retinal vasculitis. TECHNIQUE: Magnetic resonance angiography (MRA) of the brain was performed without intravenous contra st with T1-weighted SPGR by the 3D [id number] technique. Maximum intensity projection 3D-reconstr uctions were obtained. COMPARISON: None. FINDINGS: Left vertebral artery is dominant. There is no significant stenosis of basilar artery or the posterio r cerebral arteries. There is no significant stenosis of the intracranial internal carotid arteries o r anterior or middle cerebral arteries. Anterior communicating artery is normal. The posterior commun icating arteries are normal. There is no aneurysm. IMPRESSION: 1. Normal MRA. Reviewed, dictated and finalized at location A. IMPRESSION: 1. Normal MRA.
== END 2024-04-07 13:01 | disposition home or self-care (01) ==
LOC: ANHIMG 13:04
PROVIDERS: PCP Family Medicine
DX: H35.061 Retinal vasculitis, right eye (principal)
CPT/HCPCS: 70544; 70553; A9577

== ENCOUNTER 2024-09-20 09:00 | Outpatient (CLI) | payer OTHER, SELFPAY ==
[2024-09-20 09:52] LABS: Basophils Percent Auto 0.6 % (0.2-1.2); Eosinophils Absolute Auto 0.1 K/mm3 (0-0.3); Eosinophils Percent Auto 1.7 % (0-4.4); Hematocrit 40.4 % (37.0-47.0); Hemoglobin 13.8 g/dL (12.0-15.0); Immature Granulocyte Absolute 0.07 K/mm3 (0.00-0.031); Immature Granulocyte Percent A 1.1 % (0-0.5); Lymphocytes Absolute Auto 1.44 K/mm3 (0.9-3.2); Lymphocytes Percent Auto 21.7 % (18.3-44.2); Mean Corpuscular HGB Conc 34.2 g/dl (32-36); Mean Corpuscular Hemoglobin 32.3 pg (26-34); Mean Corpuscular Volume 94.6 fl (80-100); Mean Platelet Volume 8.9 fl (7.4-10.4); Monocytes Absolute Auto 0.6 K/mm3 (0.1-0.6); Monocytes Percent Auto 8.9 % (2.6-8.5); Neutrophils Absolute Auto 4.4 K/mm3 (1.3-6.7); Platelet Count Result 253 k/mm3 (150-375); Red Blood Count 4.27 M/mm3 (4.2-5.4); Red Cell Distribution Width 12.8 % (11.5-14.5); White Blood Count 6.6 K/mm3 (4.5-10.0)
[2024-09-20 11:03] LABS: Erythrocyte Sedimentation Rate 18 mm/hr (0-20)
== END 2024-09-20 09:01 | disposition home or self-care (01) ==
PROVIDERS: PCP Family Medicine
DX: H20.9 Unspecified iridocyclitis (principal); Z79.899 Other long term (current) drug therapy
CPT/HCPCS: 36415; 85025; 85652

== ENCOUNTER 2024-10-09 07:06 | Outpatient (CLI) | payer OTHER, SELFPAY ==
[2024-10-09 08:28] LABS: Basophils Absolute Auto 0.1 K/mm3 (0.0-0.1); Basophils Percent Auto 0.9 % (0.2-1.2); Eosinophils Absolute Auto 0.1 K/mm3 (0-0.3); Eosinophils Percent Auto 1.7 % (0-4.4); Hematocrit 39.8 % (37.0-47.0); Immature Granulocyte Absolute 0.17 K/mm3 (0.00-0.031); Immature Granulocyte Percent A 2.6 % (0-0.5); Lymphocytes Absolute Auto 1.57 K/mm3 (0.9-3.2); Lymphocytes Percent Auto 24.3 % (18.3-44.2); Mean Corpuscular HGB Conc 32.7 g/dl (32-36); Mean Corpuscular Volume 94.8 fl (80-100); Mean Platelet Volume 8.8 fl (7.4-10.4); Monocytes Absolute Auto 0.6 K/mm3 (0.1-0.6); Monocytes Percent Auto 9.3 % (2.6-8.5); Neutrophils Percent Auto 61.2 % (45.5-73.1); Platelet Count Result 309 k/mm3 (150-375); Red Cell Distribution Width 12.8 % (11.5-14.5); White Blood Count 6.5 K/mm3 (4.5-10.0)
[2024-10-09 08:45] LABS: Alanine Aminotransferase 21 U/L (6-35); Albumin Level 4.2 g/dL (3.5-5.1); Alkaline Phosphatase 60 U/L (38-126); Anion Gap 3 mmol/L (4-12); Aspartate Amino Transferase 24 U/L (14-36); Bilirubin,Total 0.5 mg/dL (0.2-1.3); Blood Urea Nitrogen 18 mg/dL (7-17); CRP < 0.5 mg/dL (<1.0); Calcium 9.5 mg/dL (8.4-10.2); Carbon Dioxide 29 mmol/L (22-30); Chloride 106 mmol/L (98-107); Estimated Glomerular Filt Rate > 60; Glucose 72 mg/dL (65-110); Potassium 3.7 mmol/L (3.4-5.0); Sodium 138 mmol/L (137-145)
[2024-10-09 09:20] LABS: Erythrocyte Sedimentation Rate 18 mm/hr (0-20)
== END 2024-10-09 07:07 | disposition home or self-care (01) ==
PROVIDERS: PCP Family Medicine
DX: H20.9 Unspecified iridocyclitis (principal); Z79.899 Other long term (current) drug therapy
CPT/HCPCS: 36415; 80053; 85025; 85652; 86140

== ENCOUNTER 2024-12-07 00:46 | Day surgery (SDC) | payer OTHER, SELFPAY ==
[2024-11-23 10:52] VITALS: BMI 25.0
--- NOTE | 2024-11-23 10:55 | PC.NURSE ---
Report to the Outpatient Waiting Room, entrance under the green pavilion located off [facility], at time ___8am____ on date ___[id number]____. Planned Procedure Time: __1000 .? Time changes happen often and if your time is changed the preop area will call you the afternoon before. - You and your visitor will be asked to self-screen and do not enter if you have any COVID symptoms. Please call surgeon if you need to reschedule. - A mask is optional within the hospital at this time. Patients may have clear liquids (water, carbonated beverages, clear teas, apple juice) until 3 hours prior to surgery with a maximum of 20 ounces. stop at 7am - No food from midnight until time of surgery and no smoking, or chewing tobacco (or any form of nicotine). No chewing gum, candy or mints. - Take only the following medications with a SIP of water on the morning of surgery: ___n/a DO NOT STOP ANY OF YOUR OTHER PRESCRIPTION MEDICATIONS PRIOR TO SURGERY EXCEPT THE FOLLOWING: Prevacid of Pepcid Hold all vitamins and supplements for 3 days per anesthesiologist. Last dose: 12-03-2024 Please no make-up, nail albanian, hairspray, perfume, deodorant, or body powder the day of surgery.? No jewelry (including any body piercings) or valuables the day of surgery, leave them at home.? Please take a shower or bath the night before, or the morning of, surgery with an antibacterial soap.? Wear comfortable, loose fitting clothing.? - Jewelry must be removed prior to entering the operating room.? Rings and piercings that are not removed may be cut off. - The hospital will not accept responsibility for valuables.? - Please leave all valuables, including medications, at home the day of surgery. If you are going home after surgery, a licensed delivery driver assistant must drive you home.? - NO public transportation without another adult if you receive anesthesia. - We recommend that an adult stay with you for 24 hours following discharge. - We also recommend that you do not drive, make important decision, drink alcoholic beverages, or take any drugs that were not prescribed by your health care provider for at least 24 hours after your discharge time. Follow any additional instructions given to you from your surgeon. Telephone instructions given to Patient (Yanelis)____and asked if any additional questions and then verbalized understanding. Patient advised to call surgeon office or pre surgery nurse liaison [phone] if any additional questions.
[2024-12-07] VITALS (8 sets, daily range): BP systolic 99–126; BP diastolic 66–78; PULSE 68–82; RESP 13–17; TEMP 36.5–36.9; O2SAT 98–100
--- OUTSIDE RECORDS SUMMARY | 2024-12-07 00:51 | XMS_ITS | Referral Summary ---
Author Organization [facility] Address [address] [place] [id number] Care Team Providers Care Pan Washer Name Role Phone Alexandro Larios MD Primary Care Provider Encounters Date Type Department Care Team Description 11/21/2024 11:00 AM AUDITOR SUPERVISOR Office Visit [facility] Rheumatology [address] [place] [address] [place] [id number] Jaren Li MD PhD Uveitis (Primary Dx); High risk medication use 10/16/2024 Orders Only [facility] [address] [place] [address] [place] [address] Laurie Vallejo RMA 10/13/2024 Orders Only [facility] [address] [place] [address] [place] [address] ProviderMonica MD 10/13/2024 Documentation [facility] [address] [place] [address] [place] [address] Laurie Vallejo RMA from Last 3 Months Allergies No known active allergies Medications predniSONE (DELTASONE) 20 mg tablet Take 0.5 tablets (10 mg) by mouth daily 4 Active lansoprazole (PREVACID) 30 mg capsule Take 1 capsule (30 mg total) by mouth daily Active folic acid (FOLVITE) 1 mg tablet Take 1 tablet (1 mg total) by mouth daily 90 tablet 3 4 025 Active ondansetron (ZOFRAN) 4 mg tablet Take 1 tablet (4 mg total) by mouth every 6 (six) hours as needed for nausea or vomiting 30 tablet 4 Active predniSONE (DELTASONE) 10 mg tablet 1 tablet (10 mg) 5 Active methotrexate 2.5 mg tabletIndicati ons:autoimmune disease Take 8 tablets (20 mg total) by mouth every 7 days 96 tablet 3 5 026 Active methotrexate 2.5 mg tablet TAKE 6 TABLETS(15 MG) BY MOUTH 1 TIME A WEEK 24 tablet 1 5 025 Discontinued Active Problems No known active problems Social History Tobacco Use Types Packs/Day Years Used Date Smoking Tobacco: Never Passive Smoke Exposure: Never Smokeless Tobacco: Never Tobacco Cessation:Counseling Given: Not Answered Comments Unknown Sex and Gender Information Value Date Recorded Sex Assigned at Not on file Legal Sex Female 1:39 AM AUDITOR SUPERVISOR Gender Identity Not on file Sexual Orientation Not on file Last Filed Vital Signs Vital Sign Reading Time Taken Comments Blood Pressure 125/85 11/21/2024 11:01 AM AUDITOR SUPERVISOR Pulse 75 11/21/2024 11:01 AM AUDITOR SUPERVISOR Temperature 36.6 C (97.8 F) 08/15/2024 10:20 AM CDT Respiratory Rate - - Oxygen Saturation 100% 11/21/2024 11:01 AM AUDITOR SUPERVISOR Inhaled Oxygen Concentration - - Weight 76.3 kg (168 lb 3.2 oz) 11/21/2024 11:01 AM AUDITOR SUPERVISOR Height 172.7 cm (5' 8 ) 11/21/2024 11:01 AM AUDITOR SUPERVISOR Body Mass Index 25.57 11/21/2024 11:01 AM AUDITOR SUPERVISOR Plan of Treatment Not on file Procedures Procedure Name Priority Date/Time Associated Diagnosis Comments CMP Routine 10/13/2024 7:41 AM AUDITOR SUPERVISOR ESR - SED RATE - ERYTHROCYTE SEDIMENTATION RATE Routine 10/13/2024 7:41 AM AUDITOR SUPERVISOR CBC WITHOUT DIFFERENTIAL Routine 10/13/2024 7:41 AM AUDITOR SUPERVISOR HEPATITIS C ANTIBODY Routine 08/15/2024 11:08 AM CDT Uveitis from Last 3 Months or Most Recently Relevant to Health Maintenance Results * ESR - Sed Rate - Erythrocyte Sedimentation Rate (10/13/2024 7:41 AM AUDITOR SUPERVISOR) us Historical Provider MD LAB BLOOD ORDERABLES Sima l Result * CMP (10/13/2024 7:41 AM AUDITOR SUPERVISOR) Historical Provider MD LAB BLOOD ORDERABLES Sima l Result * CBC without differential (10/13/2024 7:41 AM AUDITOR SUPERVISOR) Blood Historical Provider MD LAB BLOOD ORDERABLES Sima l Result * Hepatitis C antibody Blood (08/15/2024 11:08 AM CDT) Hep C Ab Nonreactive Nonreactive Comment:Antibodies to HCV no t detected. Does NOT exclude the possibility of recent exposure to HCV. Current interpretive data was last revised on 22 Blood 08/15/2024 11:0 8 AM CDT 08/15/2024 11:45 AM CDT Jaren Li MD PhD LAB MICROBIOLOGY - GENERAL ORDERABLES Final Result [facility] Department [place] [address] from Last 3 Months or Most Recently Relevant to Health Maintenance Insurance [facility] Care Teams Pan Washer Relationship Specialty Start Date End Date Alexandro Larios MD [address] [place] [address] PCP - General Family Medicine 08/09/24
--- OUTSIDE RECORDS SUMMARY | 2024-12-07 00:51 | XMS_ITS | Encounter Summary ---
Author Organization [facility] Address [address] [place] [address] Care Team Providers Care Fundraising Coordinator Name Role Phone Unavailable Primary Care Provider Unavailabl e Encounter Details Date Type Department Care Team (Late st Contact Info) Description 12/05/2024 External Device Data [facility] Provider, Abstract NO ADDRESS ON FILE Social History Tobacco Use Types Packs/Day Years Used Date Smoking Tobacco: Never Smokeless Tobacco: Never Comments Unknown Sex and Gender Information Value Date Recorded Sex Assigned at Not on file Legal Sex Female 9:53 AM CDT Gender Identity Not on file Sexual Orientation Not on file documented as of this encounter Plan of Treatment Not on file documented as of this encounter Visit Diagnoses Not on filedocumented in this encounter
--- OUTSIDE RECORDS SUMMARY | 2024-12-07 00:51 | XMS_ITS | Clinical Summary ---
Author Organization [facility] Address [address] [place] [address] Care Team Providers Care Rn Plastics Name Role Phone Alexandro Larios MD Primary Care Provider [phone] Allergies No known active allergies Medications predniSONE [...] Discontinued Active Problems No known active problems Encounters Date Type Department Care Team Description 11/21/2024 11:00 AM JUICE SCALEMAN Office Visit [facility] Rheumatology [address] [facility] [facility] 5th [place] [address] [place] [address] Jaren Li MD PhD Uveitis (Primary Dx); High risk medication use 10/16/[address] [facility] Rheumatology [address] [facility] 5th [place] [address] [place] [address] Laurie Vallejo RMA 10/13/[address] [facility] Rhe[facility] [address] [facility] [address] 5th [place] [address] [place] [address] ProviderMonica MD 10/13/[address] [facility] Rheumatology [address] [place] [address] 5th [place] [address] [place] [address] Laurie Vallejo RMA from Last 3 Months Medical History Medical History Date Comments Cataract Family History Medical History Relation Name Comments Alpha-1 antitrypsin deficiency Father Relation Name Status Comments Father Social History Tobacco Use Types Packs/Day Years Used Date Smoking Tobacco: Never Passive Smoke Exposure: Never Smokeless Tobacco: Never Tobacco Cessation:Counseling Given: Not Answered Comments Unknown Sex and Gender Information Value Date Recorded Sex Assigned at Not on file Legal Sex Female 1:39 AM JUICE SCALEMAN Gender Identity Not on file Sexual Orientation Not on file Obstetrics History Last Filed Vital Signs Vital Sign Reading Time Taken Comments Blood Pressure 125/85 11/21/2024 11:01 AM JUICE SCALEMAN Pulse 75 11/21/2024 11:01 AM JUICE SCALEMAN Temperature 36.6 C (97.8 F) 08/15/2024 10:20 AM CDT Respiratory Rate - - Oxygen Saturation 100% 11/21/2024 11:01 AM JUICE SCALEMAN Inhaled Oxygen Concentration - - Weight 76.3 kg (168 lb 3.2 oz) 11/21/2024 11:01 AM JUICE SCALEMAN Height 172.7 cm (5' 8 ) 11/21/2024 11:01 AM JUICE SCALEMAN Body Mass Index 25.57 11/21/2024 11:01 AM JUICE SCALEMAN Plan of Treatment Health Maintenance Due Date Last Done Comments Breast Cancer Screening-Mammogram 1970 Cervical Cancer Screening 1970 Colon Cancer Screening-Colonoscopy 1970 Depression Screening 1970 Pneumococcal vaccine <65 (1 of 2 - PCV) 1976 DTaP/Tdap/Td Vaccine (1 - Tdap) 1981 Regular Well Visit/Exam 18-64 1988 Zoster Vaccine (1 of 2) 1989 Covid-19 Vaccine ( season) 2024 11/05/2021, 01/07/2021, 12/17/2020 Influenza Vaccine (#1) 2024 Hepatitis B Screening Completed 08/15/2024 Hepatitis C Screening Completed 08/15/2024 Procedures Procedure Name Priority Date/Time Associated Diagnosis Comments CMP Routine 10/13/2024 7:41 AM JUICE SCALEMAN ESR - SED RATE - ERYTHROCYTE SEDIMENTATION RATE Routine 10/13/2024 7:41 AM JUICE SCALEMAN CBC WITHOUT DIFFERENTIAL Routine 10/13/2024 7:41 AM JUICE SCALEMAN HEPATITIS C ANTIBODY Routine 08/15/2024 11:08 AM CDT Uveitis from Last 3 Months or Most Recently Relevant to Health Maintenance Results * ESR - Sed Rate - Erythrocyte Sedimentation Rate (10/13/2024 7:41 AM JUICE SCALEMAN) Result [facility] Historical Provider MD LAB BLOOD ORDERABLES Sima l Result * CMP (10/13/2024 7:41 AM JUICE SCALEMAN) [facility] Provider MD LAB BLOOD ORDERABLES Sima l Result * CBC without differential (10/13/2024 7:41 AM JUICE SCALEMAN) Blood Result [facility] Provider MD LAB BLOOD ORDERABLES Sima l [...] LAB MICROBIOLOGY - GENERAL ORDERABLES Final Result [facility] Department [place] [address] from Last 3 Months or Most Recently Relevant to Health Maintenance Insurance Care Teams Rn Plastics Relationship Specialty Start Date End Date Alexandro Larios MD [address] [address] PCP - General Family Medicine 08/09/24
--- OUTSIDE RECORDS SUMMARY | 2024-12-07 00:51 | XMS_ITS | Clinical Summary ---
Author Organization [facility] Address [address] [place] [address] [place] [address] Care Team Providers Care Proposal Specialist Name Role Phone Unavailable Primary Care Provider Unavailabl e Allergies No known active allergies Medications azithromycin (ZITHROMAX) 250 mg tablet TAKE 2 TABLETS ( 500 MG) BY MOUTH ON DAY 1, THEN TAKE 1 TABLET ONCE DAILY ON DAYS 2 THRU 5. 6 Tablet 08/03/2022 9:45 AM CDT 08/03/2022 Active azithromycin (ZITHROMAX) 250 mg tablet TAKE 2 TABLETS BY MOUTH ON DAY 1, THEN TAKE 1 TABLET BY MOUTH DAILY ON DAYS 2-5 6 Tablet 08/25/2023 Active ibuprofen (MOTRIN) 800 mg tablet Take 1 Tablet (800 mg) by mouth every 6 hours. 28 Tablet 12/04/2024 Active traMADoL (ULTRAM) 50 mg tablet Take 1 Tablet (50 mg) by mouth every 6 hours. 20 Tablet 12/04/2024 Active Active Problems No known active problems Encounters Date Type Department Care Team Description 12/05/2024 External Device Data [facility] Provider, Abstract 11/09/2024 External Device Data [facility] Provider, Abstract from Last 3 Months Social History Tobacco Use Types Packs/Day Years Used Date Smoking Tobacco: Never Smokeless Tobacco: Never Comments Unknown Sex and Gender Information Value Date Recorded Sex Assigned at Not on file Legal Sex Female 9:53 AM CDT Gender Identity Not on file Sexual Orientation Not on file Last Filed Vital Signs Vital Sign Reading Time Taken Comments Blood Pressure 117/83 03/26/2021 2:38 PM CDT Pulse 84 03/26/2021 2:38 PM CDT Temperature 36.6 C (97.8 F) 03/26/2021 2:38 PM CDT Respiratory Rate 18 03/26/2021 2:38 PM CDT Oxygen Saturation 97% 03/26/2021 2:38 PM CDT Inhaled Oxygen Concentration - - Weight 74.8 kg (165 lb) 03/26/2021 2:38 PM CDT Height 172.7 cm (5' 8 ) 03/26/2021 2:38 PM CDT Body Mass Index 25.09 03/26/2021 2:38 PM CDT Plan of Treatment Health Maintenance Due Date Last Done Comments DTAP/TDAP/TD VACCINES (1 - Tdap) 1989 HEPATITIS B VACCINES (1 of 3 - 19+ 3-dose series) 04/18 CERVICAL CANCER SCREENING 2000 BREAST CANCER SCREENING 2010 COLORECTAL SCREENING 2015 Colorectal Cancer Screening 2015 FIT-DNA Q 3 years 2015 FIT/FOBT Q 1 year 2015 Flex Sig/CT Colonography Q 5 years 2015 ZOSTER VACCINE (1 of 2) 2020 INFLUENZA VACCINE (#1) 2024 Insurance [facility] [employer] PPO RX [employer] Member Subscriber Plan / Payer (Ef fective 2022-Present) Name:Yanelis Ansari Relation to Subscriber:Self Name:Yanelis Ansari Subscriber ID:Not on file Payer ID:Not on file Type:RX Commercial Address: [address] [facility] [employer]
--- NOTE | 2024-12-07 07:16 | WPDHPUPDATE1 ---
History and Physical Update Update Date/Time: 12/07/24 07:16 History and Physical has been reviewed, including an updated exam of the patient. There are NO changes in the patient's condition. Risks, benefits, and alternatives have been discussed and questions answered. Patient agrees to proceed with procedure.
[2024-12-07] MEDS: LACTATED RINGERS 1,000 ML 30 ML IV CONT (08:55)
[2024-12-07] MEDS: ACETAMINOPHEN 500 MG TABLET 1000 MG PO (08:55)
[2024-12-07] MEDS: KETOROLAC 15 MG/ML VIAL (*BKC) IV PUSH (08:55)
--- NOTE | 2024-12-07 10:02 | WPDANESEPPF ---
Anes - Initial Pre Proc Eval Procedure: Operation Date: 12/07/24 10:00 Proposed Procedures p Right Knee Arthroscopy, Partial Lateral Meniscectomy - Rodríguez Khan MD Date/Time: 12/07/24 10:02 Surgeon: Rodríguez Khan MD Pre Op Diagnosis: right knee lateral meniscus tear Patient Data Age: 54 Gender: F Height: 1.73 m Weight: 76 kg Last Vital Signs Temp 97.7 F 12/07/24 08:55 Pulse 72 12/07/24 08:55 Resp 14 12/07/24 08:55 BP 111/68 12/07/24 08:55 Pulse Ox 100 12/07/24 08:55 O2 Del Method Room Air 12/07/24 08:55 Allergies Allergy/AdvReac Type Severity Reaction Status Date / Time No Known Allergies Allergy Verified 12/07/24 09:37 Home Medications ?Medication ?Instructions ?Recorded ?Confirmed ?Type famotidine-Ca carb-mag hydrox 10 1 tablet PO DAILY PRN Heartburn 09/13/21 12/07/24 History mg-800 mg-165 mg chewable tablet (Pepcid Complete) ferrous sulfate 325 mg (65 mg 60 mg PO DAILY 09/13/21 12/07/24 History iron) tablet (Iron (ferrous sulfate)) vitamin A-vitamin C-vit E-min 1 tablet PO DAILY 09/13/21 12/07/24 History tablet vitamin B complex (B 1,000 tablet PO DAILY 09/13/21 12/07/24 History Complex-Vitamin B12 tablet) lansoprazole 30 mg capsule,delayed See Rx Instructions .Route 03/07/24 12/07/24 Rx release .COMPLEX #180 caps folic acid 20 mg capsule 20 mg PO DAILY 11/20/24 12/07/24 History Lactobacillus acidophilus 10 100 mmu cells PO DAILY 11/23/24 11/23/24 History billion cell capsule (Probacap) vitamin A-vitamin C-vit E-min 1 tablet PO DAILY 11/23/24 12/07/24 History tablet (Ocutabs tablet) Patient hx anesthesia problems: none Family hx anesthesia problems: none Results Review: All pre-operative results and documents have been reviewed as part of the pre-operative evaluation. [facility] Past Medical History Medical History Right foot pain Vitamin B12 deficiency Fatigue Sigmoid diverticulitis (~08/2021) Abdominal pain Surgical History Surgical History No history of previous surgery Social History Social History Smoking status: Never smoker Alcohol intake: current Drinks per week: 1 Alcohol use details: less than 1-2 a month Substance use: never Do You Feel Safe in your Home?: Yes Lack of Transportation: No Lack of Food: Never True Current Housing: I Have Housing Concerned About Future Housing: No Difficulty Paying Gas/Electric Bills: No Difficulty Paying for Meds: No Currently Unemployed: No Education: Master's Degree or Higher Difficulty w/ Childcare or Family Care: No Living arrangements: with family Spiritual care concerns: No Anes - Eval Final PreProcedure Day of Procedure 12/07/24 10:02 Patient weight: normal Lungs: normal air movement Airway: Mallampati scale class II and special considerations (Recent root canal noted. ) Neurological: alert and oriented Last oral intake: >/= 8 hours ASA classification: II Emergent: no Anesthetic plan: proceed Anesthesia type and monitoring: general LMA and standard monitoring Results Review: All pre-operative results and documents have been reviewed as part of the pre-operative evaluation. Pt w hx of uveitis, on meds, occ sob deemed secondary to med. No other cp or sob w activity. Informed Consent: The patient's anesthetic plan and its attendant risks and benefits were discussed with the patient/family/POA. Questions were solicited and answers provided to the satisfaction of the patient/family/POA.
[2024-12-07] MEDS: ceFAZolin 2 GM/D5W 50 ML 2 GM/50 ML BAG IVPB (10:12)
[2024-12-07] MEDS: BUPIVACAINE/EPINEPHRINE 0.5% 50 ML VIAL 30 ML INFILTRATE (10:31)
--- NOTE | 2024-12-07 11:38 | W.PM.PROC2 ---
Procedure Note - Detailed Date of Procedure 12/07/24 Pre-op Diagnosis Right knee lateral meniscus tear Post-op Diagnosis Same Procedure Performed Arthroscopic partial lateral meniscectomy, right knee. Surgeon Rodríguez Kahn MD Anesthesia General Findings Extensive lateral meniscus complex tear. Subtotal meniscectomy performed. Deep chondral fissuring on the femur and exposed bone on the tiba. Medial femur chondromalacia grade 0, medial tibia grade 0. Lateral femur chondromalacia grade 3, lateral tibia grade 4. Patellar grade 1, trochlea grade 0. Description of Procedure The patient was identified and the surgical site confirmed and signed in the preoperative holding area. Antibiotics were started per protocol, and the patient was brought to the operative room and transferred to the OR table. A general anesthetic was administered. Supine position with the operative lower extremity position in the leg kat after placement of a well padded tourniquet. The leg support was lowered and the contralateral limb was supported with a soft bolster. The knee was prepped and draped in the usual sterile fashion. A time-out was performed. The portal sites were marked and infiltrated with 0.5% Marcaine 20 mL. The limb was exsanguinated and the tourniquet inflated to 300 mL Hg. Standard inferolateral and inferomedial portals were established. Inflow was obtained with the saline pump. The camera was introduced. Diagnostic inspection of the joint was accomplished. The meniscus was debrided with the arthroscopic shaver and punches until stable. The radiofrequency probe was also used for further d?bridement. Gentle chondroplasty performed on the lateral chondral surfaces. The arthroscopic instruments were removed. The tourniquet released and wounds closed with subcutaneous 4-0 Monocryl absorbable suture. Steri strips and a sterile dressing were applied. A light elastic wrap was placed. The patient was extubated and brought to the recovery room in stable condition. Estimated Blood Loss 5 Drains No Complications No immediate complications Condition Stable Disposition PACU [facility] Billing Surgery - Charge Forward: Surgery Billing
== END 2024-12-07 13:07 | disposition home or self-care (01) ==
PROVIDERS: PCP Family Medicine; Visit Provider Orthopaedic Surgery
PROC: (CPT 29870; principal; 2024-12-07 10:00)
DX: S83.271A Complex tear of lateral meniscus, current injury, right knee, initial encounter (principal); M94.261 Chondromalacia, right knee; X58.XXXA Exposure to other specified factors, initial encounter
CPT/HCPCS: 29881; A9270; J0690; J1100; J1885; J2003; J2250; J2405; J2704; J3010; J7120

== ENCOUNTER 2024-12-15 16:15 | Outpatient (CLI) | payer OTHER, SELFPAY ==
[2024-12-15 17:40] LABS: Basophils Percent Auto 0.8 % (0.2-1.2); Eosinophils Absolute Auto 0.1 K/mm3 (0-0.3); Eosinophils Percent Auto 2.8 % (0-4.4); Hematocrit 41.6 % (37.0-47.0); Hemoglobin 13.8 g/dL (12.0-15.0); Immature Granulocyte Absolute 0.09 K/mm3 (0.00-0.031); Immature Granulocyte Percent A 1.8 % (0-0.5); Lymphocytes Absolute Auto 1.53 K/mm3 (0.9-3.2); Lymphocytes Percent Auto 30.2 % (18.3-44.2); Mean Corpuscular HGB Conc 33.2 g/dl (32-36); Mean Corpuscular Hemoglobin 31.6 pg (26-34); Mean Corpuscular Volume 95.2 fl (80-100); Mean Platelet Volume 9.1 fl (7.4-10.4); Monocytes Absolute Auto 0.6 K/mm3 (0.1-0.6); Monocytes Percent Auto 11.8 % (2.6-8.5); Neutrophils Absolute Auto 2.7 K/mm3 (1.3-6.7); Neutrophils Percent Auto 52.6 % (45.5-73.1); Platelet Count Result 225 k/mm3 (150-375); Red Blood Count 4.37 M/mm3 (4.2-5.4); Red Cell Distribution Width 12.6 % (11.5-14.5); White Blood Count 5.1 K/mm3 (4.5-10.0)
[2024-12-15 18:05] LABS: Alanine Aminotransferase 49 U/L (6-35); Albumin Level 4.5 g/dL (3.5-5.1); Alkaline Phosphatase 66 U/L (38-126); Anion Gap 7 mmol/L (4-12); Aspartate Amino Transferase 27 U/L (14-36); Bilirubin,Total 0.5 mg/dL (0.2-1.3); Blood Urea Nitrogen 22 mg/dL (7-17); CRP < 0.5 mg/dL (<1.0); Calcium 9.7 mg/dL (8.4-10.2); Carbon Dioxide 29 mmol/L (22-30); Chloride 104 mmol/L (98-107); Estimated Glomerular Filt Rate > 60; Glucose 77 mg/dL (65-110); Potassium 4.3 mmol/L (3.4-5.0); Sodium 140 mmol/L (137-145)
[2024-12-15 18:21] LABS: Erythrocyte Sedimentation Rate 10 mm/hr (0-20)
== END 2024-12-15 16:16 | disposition home or self-care (01) ==
PROVIDERS: PCP Family Medicine
DX: H20.9 Unspecified iridocyclitis (principal); Z79.899 Other long term (current) drug therapy
CPT/HCPCS: 36415; 80053; 85025; 85652; 86140

== ENCOUNTER 2024-12-26 12:45 | Outpatient (RCR) | payer OTHER, SELFPAY ==
--- NOTE | 2024-12-12 13:59 | OPREHPOC ---
Outpatient Therapy Plan of Care This is a Multidisciplinary Plan of Care that may contain components documented by all disciplines (PT, OT, and ST.) PT Problem 1 PT Problem #1 Knowledge Deficit PT Goal 1 Goal / Goal Update 1. Pt to be IND with issued HEP Target Visit 6 PT Problem 2 PT Problem #2 Impaired Range of Motion PT Goal 1 Goal / Goal Update 1. pt to improve R knee ROM to 130 deg of flexion Target Visit 6 PT Problem 3 PT Problem #3 Impaired Functional Mobility PT Goal 1 Goal / Goal Update 1. pt to be able to demonstrate 30lb lift and carry from ground level without substitutions. 2. Pt to demonstrate dynamic lunge without instability
--- NOTE | 2024-12-12 13:59 | PTOPEVAL1 ---
Assessment and note entered by Mariam Jimenez, PT, DPT Evaluation Information Assessment Status Evaluation Diagnosis R partial knee meniscectomy ICD-10 Condition Codes (PT) Pain in right knee M25.561,Encounter for other orthopedic aftercare Z47.89 Onset 12/07/24 Subjective Information Pt states her recover is going really well so far, she has been walking since the day of surgery and has just been walking more an more each day. She states she is able to walk up/down the stairs reciprocally. States in the last day or two pain will get up to a 4/[address] if she [address] a certain way. Prior to surgery pt was doing weight training, walking 3-4 miles at a time and overall has a really active lifestyle. 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 Reported Pain Level Pain Score 0: Self Report Assessment PT Clinical Summary Pt presents to therapy today for her initial evaluation following a R knee partial meniscectomy on 12/07/24. Today she demonstrates decreased active ROM, decreased strength, deviations when squatting, and decreased functional mobility from her baseline reports. Pt is very active at baseline. Skilled therapy services are indicated to improve functional mobility and to return to PLOF. Plan of Care Interventions Electrical Stimulation,Gait Training,Hot Pack/Cold Pack,Manual Therapy,Neuro Re-education,Patient/ Caregiver Education,Therapeutic Activities, Therapeutic Exercise PT Services Indicated Yes Treatment Frequency and 1x/wk for 6 visits Duration These treatments will address the objective and functional deficits as defined above. The patient will be advanced safely and appropriately in order for the patient to progress towards his/her prior level of function. Additional exercises will be introduced and as well as a comprehensive home exercise program upon discharge, if needed, ?to ensure carryover of functional gains achieved in the clinic. This treatment plan has been reviewed and agreement upon by the patient.
--- NOTE | 2024-12-26 13:26 | OPREHPOC ---
Outpatient Therapy Plan of Care This is a Multidisciplinary Plan of Care that may contain components documented by all disciplines (PT, OT, and ST.) PT Problem 1 PT Problem #1 Knowledge Deficit PT Goal 1 Goal / Goal Update 1. Pt to be IND with issued HEP Target Visit 6 Progress Met PT Problem 2 PT Problem #2 Impaired Range of Motion PT Goal 1 Goal / Goal Update 1. pt to improve R knee ROM to 130 deg of flexion Target Visit 6 Progress Met PT Problem 3 PT Problem #3 Impaired Functional Mobility PT Goal 1 Goal / Goal Update 1. pt to be able to demonstrate 30lb lift and carry from ground level without substitutions. 2. Pt to demonstrate dynamic lunge without instability Progress Met
--- NOTE | 2024-12-26 13:27 | PTOPDC ---
Assessment and note entered by Mariam Jimenez, PT, DPT Evaluation Information Assessment Status Discharge Diagnosis R partial knee meniscectomy ICD-10 Condition Codes (PT) Pain in right knee M25.561,Encounter for other orthopedic aftercare Z47.89 Onset 12/07/24 Subjective Information Pt states she is doing great, has returned to walking 2-3 miles in the morning without an increase in pain. States she has a lot more mobility. Reported Pain Level Pain Score 0: Self Report Assessment PT Clinical Summary Pt presents to therapy today for her progress report following 3 visits of skilled therapy following a R knee partial meniscectomy on 12/07/24 . Today she demonstrates active ROM that is nearly equal to her uninvolved side. She demonstrates improved mechanics with strength training, squatting, lifting. She has progressed towards her therapy goals an no longer requires skilled services. She will be discharged at this time. Plan of Care PT Services Indicated No
== END 2025-01-30 12:52 | disposition home or self-care (01) ==
LOC: ANHGOSHPT 12:45
PROVIDERS: PCP Family Medicine; Visit Provider Orthopaedic Surgery
DX: Z48.89 Encounter for other specified surgical aftercare (principal)
CPT/HCPCS: 97110; 97161; 97530

== ENCOUNTER 2025-01-11 17:01 | Outpatient (CLI) | payer OTHER, SELFPAY ==
--- OUTSIDE RECORDS SUMMARY | 2025-01-11 17:08 | XMS_ITS | Clinical Summary ---
Author Organization [facility] Address [address] [place] [address] Care Team Providers Care Belt Cleaner Name Role Phone Alexandro Larios MD Primary Care Provider [phone] Allergies No known active allergies Medications predniSONE (DELTASONE) 20 mg tablet Take 0.5 tablets (10 mg) by mouth daily 06/25/2024 Active lansoprazole (PREVACID) 30 mg capsule Take 1 capsule (30 mg total) by mouth daily Active folic acid (FOLVITE) 1 mg tablet Take 1 tablet (1 mg total) by mouth daily 90 tablet 3 08/15/2024 08/15/20 25 Active ondansetron (ZOFRAN) 4 mg tablet Take 1 tablet (4 mg total) by mouth every 6 (six) hours as needed for nausea or vomiting 30 tablet 10/16/2024 Active predniSONE (DELTASONE) 10 mg tablet 1 tablet (10 mg) 10/26/2024 Active methotrexate 2.5 mg tabletIndicatio ns:autoimmune disease Take 8 tablets (20 mg total) by mouth every 7 days 96 tablet 3 11/21/2024 11/21/19 26 Active Active Problems No known active problems Encounters Date Type Department Care Team Description 12/22/[address] [facility] [address] [facility] 5th [place] [address] Laurie Vallejo RMA 12/19/[address] [facility] [address] [facility] 5th [place] [address] Jaren Li MD PhD LFT elevation (Primary Dx) 12/15/2024 Orders Only [facility] Scanning, Provider 11/21/2024 11:00 AM CREATIVE WRITING ENGLISH PROFESSOR Office Visit [facility] [address] [place] [address] 5th [place] [address] Jaren Li MD PhD Uveitis (Primary Dx); High risk medication use 10/16/2024 Orders Only [address] 5th [place] [address] Laurie Vallejo RMA 10/13/[address] [facility] [address] [place] [address] [place] [address] ProviderMonica MD 10/13/[address] [facility] [address] [place] [address] 5th [place] [address] Laurie Vallejo RMA from Last 3 Months [...] on file Legal Sex Female 1:39 AM CREATIVE WRITING ENGLISH PROFESSOR Gender Identity Not on file Sexual Orientation Not on file Obstetrics History Last Filed Vital Signs Vital Sign Reading Time Taken Comments Blood Pressure 125/85 11/21/2024 11:01 AM CREATIVE WRITING ENGLISH PROFESSOR Pulse 75 11/21/2024 11:01 AM CREATIVE WRITING ENGLISH PROFESSOR Temperature 36.6 C (97.8 F) 08/15/2024 10:20 AM CDT Respiratory Rate - - Oxygen Saturation 100% 11/21/2024 11:01 AM CREATIVE WRITING ENGLISH PROFESSOR Inhaled Oxygen Concentration - - Weight 76.3 kg (168 lb 3.2 oz) 11/21/2024 11:01 AM CREATIVE WRITING ENGLISH PROFESSOR Height 172.7 cm (5' 8 ) 11/21/2024 11:01 AM CREATIVE WRITING ENGLISH PROFESSOR Body Mass Index 25.57 11/21/2024 11:01 AM CREATIVE WRITING ENGLISH PROFESSOR Plan of Treatment Health Maintenance Due Date Last Done Comments Breast Cancer Screening-Mammogram 1970 Cervical Cancer Screening 1970 Colon Cancer Screening-Colonoscopy 1970 Depression Screening 1970 DTaP/Tdap/Td Vaccine (1 - Tdap) 1981 Regular Well Visit/Exam 18-64 1988 Pneumococcal vaccine <65 (1 of 2 - PCV) 1989 Zoster Vaccine (1 of 2) 1989 Covid-19 Vaccine (4 - season) 2024 11/05/2021, 01/07/2021, 12/17/2020 Influenza Vaccine (#1) 2024 Hepatitis B Screening Completed 08/15/2024 Hepatitis C Screening Completed 08/15/2024 Procedures Procedure Name Priority Date/Time Associated Diagnosis Comments SCAN - LABS 12/15/2024 CMP Routine 10/13/2024 7:41 AM CREATIVE WRITING ENGLISH PROFESSOR ESR - SED RATE - ERYTHROCYTE SEDIMENTATION RATE Routine 10/13/2024 7:41 AM CREATIVE WRITING ENGLISH PROFESSOR CBC WITHOUT DIFFERENTIAL Routine 10/13/2024 7:41 AM CREATIVE WRITING ENGLISH PROFESSOR HEPATITIS C ANTIBODY Routine 08/15/2024 11:08 AM CDT Uveitis from Last 3 Months or Most Recently Relevant to Health Maintenance Results * SCAN - LABS (12/15/2024) Provider Scanning Final Result * ESR - Sed Rate - Erythrocyte Sedimentation Rate (10/13/2024 7:41 AM CREATIVE WRITING ENGLISH PROFESSOR) [facility] Provider MD LAB BLOOD ORDERABLES Sima l Result * CMP (10/13/2024 7:41 AM CREATIVE WRITING ENGLISH PROFESSOR) [facility] Provider MD LAB BLOOD ORDERABLES Sima l Result * CBC without differential (10/13/2024 7:41 AM CREATIVE WRITING ENGLISH PROFESSOR) Blood Historical Provider MD LAB BLOOD ORDERABLES Sima l Result * Hepatitis C antibody Blood (08/15/2024 11:08 AM CDT) Hep C Ab Nonreactive Nonreactive Comment:Antibodies to HCV no t detected. Does NOT exclude the possibility of recent exposure to HCV. Current interpretive data was last revised on 22 Blood 08/15/2024 11:0 8 AM CDT 08/15/2024 11:45 AM CDT us Jaren Li MD PhD LAB MICROBIOLOGY - GENERAL ORDERABLES Final Result [facility] Department [place] [address] from Last 3 Months or Most Recently Relevant to Health Maintenance Insurance Care Teams Belt Cleaner Relationship Specialty Start Date End Date Alexandro Larios MD [address] [place] [address] PCP - General Family Medicine 08/09/24
--- OUTSIDE RECORDS SUMMARY | 2025-01-11 17:08 | XMS_ITS | Referral Summary ---
Author Organization [facility] Address [address] [place] [address] Care Team Providers Care Appraiser Irrigation Tax Name Role Phone Alexandro Larios MD Primary Care Provider [phone] Encounters Date Type Department Care Team Description 12/22/2024 Orders Only [facility] [address] [place] [address] Medicine 5th [place] [address] Laurie Vallejo RMA 12/19/2024 Orders Only [facility] [address] [place] [address] 5th [place] [phone] Jaren Li MD PhD LFT elevation (Primary Dx) 12/15/[address] [facility] Scanning, Provider 11/21/2024 11:00 AM YOUTUBER Office Visit [address] 5th [place] [phone] Jaren Li MD PhD Uveitis (Primary Dx); High risk medication use 10/16/2024 Orders Only [facility] [address] [place] [address] 5th [place] [phone] Laurie Vallejo RMA 10/13/2024 Orders Only [facility] [address] [place] [address] 5th [place] [address] [phone] ProviderMonica MD 10/13/2024 Documentation [facility] [address] [place] [address] 5th [place] [address] [phone] Laurie Vallejo RMA from Last 3 Months [...] Active Active Problems No known active problems Social History Tobacco Use Types Packs/Day Years Used Date Smoking Tobacco: Never Passive Smoke Exposure: Never Smokeless Tobacco: Never Tobacco Cessation:Counseling Given: Not Answered Comments Unknown Sex and Gender Information Value Date Recorded Sex Assigned at Not on file Legal Sex Female 1:39 AM YOUTUBER Gender Identity Not on file Sexual Orientation Not on file Last Filed Vital Signs Vital Sign Reading Time Taken Comments Blood Pressure 125/85 11/21/2024 11:01 AM YOUTUBER Pulse 75 11/21/2024 11:01 AM YOUTUBER Temperature 36.6 C (97.8 F) 08/15/2024 10:20 AM CDT Respiratory Rate - - Oxygen Saturation 100% 11/21/2024 11:01 AM YOUTUBER Inhaled Oxygen Concentration - - Weight 76.3 kg (168 lb 3.2 oz) 11/21/2024 11:01 AM YOUTUBER Height 172.7 cm (5' 8 ) 11/21/2024 11:01 AM YOUTUBER Body Mass Index 25.57 11/21/2024 11:01 AM YOUTUBER Plan of Treatment Not on file Procedures Procedure Name Priority Date/Time Associated Diagnosis Comments SCAN - LABS 12/15/2024 CMP Routine 10/13/2024 7:41 AM YOUTUBER ESR - SED RATE - ERYTHROCYTE SEDIMENTATION RATE Routine 10/13/2024 7:41 AM YOUTUBER CBC WITHOUT DIFFERENTIAL Routine 10/13/2024 7:41 AM YOUTUBER HEPATITIS C ANTIBODY Routine 08/15/2024 11:08 AM CDT Uveitis from Last 3 Months or Most Recently Relevant to Health Maintenance Results * SCAN - LABS (12/15/2024) Provider Scanning Final Result * ESR - Sed Rate - Erythrocyte Sedimentation Rate (10/13/2024 7:41 AM YOUTUBER) Historical Provider MD LAB BLOOD ORDERABLES Sima l Result * CMP (10/13/2024 7:41 AM YOUTUBER) Historical Provider MD LAB BLOOD ORDERABLES Smia l Result * CBC without differential (10/13/2024 7:41 AM YOUTUBER) Blood Historical Provider MD LAB BLOOD ORDERABLES [...] LAB MICROBIOLOGY - GENERAL ORDERABLES Final Result [facility] Department [place] [address] from Last 3 Months or Most Recently Relevant to Health Maintenance Insurance [facility]PPO Address: [address] [address] [facility] Address: [place] [phone] Care Teams Appraiser Irrigation Tax Relationship Specialty Start Date End Date Alexandro Larios MD [address] [place] [address] PCP - General Family Medicine 08/09/24
--- OUTSIDE RECORDS SUMMARY | 2025-01-11 17:08 | XMS_ITS | Clinical Summary ---
Author Organization [facility] Address [address] [place], [place] [address] [address] Care Team Providers Care Collar Trimmer Name Role Phone Unavailable Primary Care Provider Unavailabl e Allergies No known active allergies Medications azithromycin (ZITHROMAX) 250 mg tablet TAKE 2 TABLETS ( 500 MG) BY MOUTH ON DAY 1, THEN TAKE 1 TABLET ONCE DAILY ON DAYS 2 THRU 5. 6 Tablet 08/03/2022 9:45 AM CDT 2 Active azithromycin (ZITHROMAX) 250 mg tablet TAKE 2 TABLETS BY MOUTH ON DAY 1, THEN TAKE 1 TABLET BY MOUTH DAILY ON DAYS 2-5 6 Tablet 3 Active HYDROcodone-marzena taminophen (NORCO) 5-325 mg tablet Take 1-2 Tablets by mouth every 4 hours as needed for pain. Max Daily Amount: 12 Tablets 14 Tablet 12/07/2024 3:36 PM DUCT LAYER HELPER 5 Active ibuprofen (MOTRIN) 800 mg tablet Take 1 Tablet (800 mg) by mouth every 6 hours. 28 Tablet 12/26/2024 7:38 PM CDT 5 Active azithromycin (Zithromax) 250 mg tablet Take 2 tablets by mouth on day 1, then take 1 tablet by mouth daily for days 2-5 6 Tablet 12/26/2024 7:38 PM CDT 5 Active traMADoL (ULTRAM) 50 mg tablet Take 1 Tablet (50 mg) by mouth every 6 hours. 20 Tablet 12/26/2024 7:38 PM CDT 5 Active ibuprofen (MOTRIN) 800 mg tablet Take 1 Tablet (800 mg) by mouth every 6 hours. 28 Tablet 12/07/2024 3:36 PM DUCT LAYER HELPER 5 12/27/19 25 Discontinu ed(Reorder ) traMADoL (ULTRAM) 50 mg tablet Take 1 Tablet (50 mg) by mouth every 6 hours. 20 Tablet 12/07/2024 3:36 PM DUCT LAYER HELPER 12/27/19 25 Discontinu ed(Reorder ) Active Problems No known active problems Encounters Date Type Department Care Team Description 01/03/2025 External Device Data [facility]CTION Provider, Abstract 12/27/2024 External Device Data [facility] Provider, Abstract 12/26/2024 External Device Data [facility] Provider, Abstract 12/23/2024 External Device Data [facility] Provider, Abstract 12/22/2024 External Device Data [facility] Provider, Abstract 12/20/2024 External Device Data [facility] Provider, Abstract 12/05/2024 External Device Data [facility] Provider, [...] of 3 - 19+ 3-dose series) 04/18 PAP SMEAR 1991 CERVICAL CANCER SCREENING 2000 HPV/Cotest (30-65) 2000 PAP SMEAR 2000 BREAST CANCER SCREENING 2010 COLORECTAL SCREENING 2015 Colorectal Cancer Screening 2015 FIT-DNA Q 3 years 2015 FIT/FOBT Q 1 year 2015 Flex Sig/CT Colonography Q 5 years 2015 ZOSTER VACCINE (1 of 2) 2020 INFLUENZA VACCINE (#1) 2024 Insurance [facility] [employer] PPO RX [employer] Member Subscriber Plan / Payer (Ef fective 2022-Present) Name:Yanelis Larios Relation to Subscriber:Self Name:Yanelis Larios Subscriber ID:Not on file Payer ID:Not on file Type:RX Commercial Address: [address] [employer]
[2025-01-11 17:30] LABS: Basophils Percent Auto 0.8 % (0.2-1.2); Eosinophils Absolute Auto 0.1 K/mm3 (0-0.3); Eosinophils Percent Auto 2.1 % (0-4.4); Hematocrit 40.4 % (37.0-47.0); Hemoglobin 13.3 g/dL (12.0-15.0); Immature Granulocyte Absolute 0.02 K/mm3 (0.00-0.031); Immature Granulocyte Percent A 0.4 % (0-0.5); Lymphocytes Absolute Auto 1.48 K/mm3 (0.9-3.2); Lymphocytes Percent Auto 31.4 % (18.3-44.2); Mean Corpuscular HGB Conc 32.9 g/dl (32-36); Mean Corpuscular Hemoglobin 31.1 pg (26-34); Mean Corpuscular Volume 94.4 fl (80-100); Monocytes Absolute Auto 0.4 K/mm3 (0.1-0.6); Monocytes Percent Auto 8.7 % (2.6-8.5); Neutrophils Absolute Auto 2.7 K/mm3 (1.3-6.7); Neutrophils Percent Auto 56.6 % (45.5-73.1); Platelet Count Result 202 k/mm3 (150-375); Red Blood Count 4.28 M/mm3 (4.2-5.4); Red Cell Distribution Width 12.6 % (11.5-14.5); White Blood Count 4.7 K/mm3 (4.5-10.0)
[2025-01-11 17:42] LABS: Alanine Aminotransferase 30 U/L (6-35); Albumin Level 4.6 g/dL (3.5-5.1); Alkaline Phosphatase 70 U/L (38-126); Aspartate Amino Transferase 29 U/L (14-36); Bilirubin,Total 0.2 mg/dL (0.2-1.3)
[2025-01-12 06:39] LABS: Protein, Total 6.8 g/dL (6.1-8.1)
[2025-01-12 20:49] LABS: Albumin 4.5 g/dL (3.8-4.8); Alpha 1 Globulin 0.2 g/dL (0.2-0.3); Alpha 2 Globulin 0.5 g/dL (0.5-0.9); Beta 1 Globulin 0.4 g/dL (0.4-0.6); Gamma Globulin 0.8 g/dL (0.8-1.7)
[2025-01-13 02:28] LABS: Creatinine, Random Urine 90 mg/dL (20-275); Total Prot/Creat ratio mg/mg 0.089 (0.024-0.184); Total Protein/Creatinine Ratio 89 mg/g creat (24-184)
[2025-01-15 11:03] LABS: Kappa\\Lambda Light Chains 1.25 (0.26-1.65); Lambda Light Chain 13.6 mg/L (5.7-26.3)
== END 2025-01-11 17:02 | disposition home or self-care (01) ==
PROVIDERS: Internal Medicine; PCP Family Medicine
DX: R79.89 Other specified abnormal findings of blood chemistry (principal)
CPT/HCPCS: 36415; 80076; 82570; 82595; 83883; 84155; 84156; 84165; 84166; 85025; 86334

== ENCOUNTER 2025-04-02 08:08 | Outpatient (CLI) | payer OTHER, SELFPAY ==
--- NOTE | ~2025-04-02 | MM_ITS ---
EXAMINATION: MM screening [facility] BI w donna HISTORY: Screening TECHNIQUE: Craniocaudal and mediolateral oblique 3-D tomosynthesis images were obtained and synthetic 2-D images were generated. CAD analysis was submitted and interpreted. COMPARISON: Comparison to multiple prior studies sequentially, with oldest reviewed study dated 11/2017. BREAST PARENCHYMAL COMPOSITION: Not Dense: The breasts are almost entirely fatty. FINDINGS: There is no evidence of suspicious mass, calcification, or architectural distortion to sugg est malignancy in either breast. There has been no suspicious interval change. IMPRESSION: 1. No mammographic evidence of malignancy. 2. Recommend routine screening mammography in one year. BI-RADS Category 1: Negative Reviewed, dictated and finalized at location A.
--- OUTSIDE RECORDS SUMMARY | 2025-04-02 08:14 | XMS_ITS | Clinical Summary ---
Author Organization [facility] Address [address] [place] [address] Care Team Providers Care Chemical Librarian Name Role Phone Alexandro Larios MD Primary Care Provider [phone] Allergies No known active allergies Medications lansoprazole (PREVACID) 30 mg capsule Take 1 capsule (30 mg total) by mouth daily Active ondansetron (ZOFRAN) 4 mg tablet Take 1 tablet (4 mg total) by mouth every 6 (six) hours as needed for nausea or vomiting 30 tablet 10/16/20 24 Active methotrexate 2.5 mg tabletIndicati ons:autoimmune disease Take 8 tablets (20 mg total) by mouth every 7 days 96 tablet 3 11/21/19 25 026 Active folic acid (FOLVITE) 1 mg tablet Take 3 tablets (3 mg total) by mouth daily 270 tablet 3 03/13/20 25 026 Active predniSONE (DELTASONE) 20 mg tablet Take 0.5 tablets (10 mg) by mouth daily 06/25/20 24 025 Discontinued folic acid (FOLVITE) 1 mg tablet Take 1 tablet (1 mg total) by mouth daily 90 tablet 3 08/15/20 24 025 Discontinued(Re order) predniSONE (DELTASONE) 10 mg tablet 1 tablet (10 mg) 10/26/19 25 025 Discontinued Active Problems Problem Noted Date Diagnosed Date Uveitis 03/13/2025 High risk medication use 03/13/2025 Encounters Date Type Department Care Team Description 03/14/2025 Orders Only [facility] [address] [facility] 5th [place] [address] [place] [phone] Laurie Vallejo RMA Uveitis (Primary Dx); High risk medication use 03/13/2025 3:30 PM CDT Office Visit [facility] [address] [facility] 5th [place] [address] [place] [address] Jaren Li MD PhD Uveitis (Primary Dx); High risk medication use 03/13/2025 Orders Only [facility], [facility] [facility] 5th [place] [address] [place] [address] Provider, MD Monica 03/13/2025 Documentation [facility] [address] [place] [address] 5th [place] [address] [place] [phone] Laurie Vallejo RMA Lab Results from Last 3 Months Medical History Medical [...] on file Legal Sex Female 1:39 AM DIRECTOR ACCOUNT MANAGEMENT Gender Identity Not on file Sexual Orientation Not on file Obstetrics History Last Filed Vital Signs Vital Sign Reading Time Taken Comments Blood Pressure 113/74 03/13/2025 3:09 PM CDT Pulse 85 03/13/2025 3:09 PM CDT Temperature 36.4 C (97.6 F) 03/13/2025 3:09 PM CDT Respiratory Rate - - Oxygen Saturation 100% 11/21/2024 11:01 AM DIRECTOR ACCOUNT MANAGEMENT Inhaled Oxygen Concentration - - Weight 74.4 kg (164 lb) 03/13/2025 3:09 PM CDT Height 172.7 cm (5' 8) 03/13/2025 3:09 PM CDT Body Mass Index 24.94 03/13/2025 3:09 PM CDT Plan of Treatment Health Maintenance [...] season) 2024 11/05/2021, 01/07/2021, 12/17/2020 Influenza Vaccine (Season Ended) 2025 Hepatitis B Screening Completed 08/15/2024 Hepatitis C Screening Completed 08/15/2024 Procedures Procedure Name Priority Date/Time Associated Diagnosis Comments CBC WITH AUTO DIFFERENTIAL Routine 03/13/2025 1:14 PM CDT CMP Routine 03/13/2025 1:14 PM CDT HEPATITIS C ANTIBODY Routine 08/15/2024 11:08 AM CDT Uveitis from Last 3 Months or Most Recently Relevant to Health Maintenance Results * CMP (03/13/2025 1:14 PM CDT) Historical Provider MD LAB BLOOD ORDERABLES Sima l Result Performing Organization Address City/[facility] Co de Phone Number EXTERNAL LAB * CBC with auto differential (03/13/2025 1:14 PM CDT) Blood Historical Provider MD LAB BLOOD ORDERABLES Sima l Result Performing Organization Address City/[facility] Co de Phone Number EXTERNAL LAB * Hepatitis C antibody Blood (08/15/2024 11:08 AM CDT) Hep C Ab Nonreactive Nonreactive Comment:Antibodies to HCV no t detected. Does NOT exclude the possibility of recent exposure to HCV. Current interpretive data was last revised on 22 Blood 08/15/2024 11:0 8 AM CDT 08/15/2024 11:45 AM CDT Jaren Li MD PhD LAB MICROBIOLOGY - GENERAL ORDERABLES Final Result [facility] Department [place] [address] from Last 3 Months or Most Recently Relevant to Health Maintenance Insurance [facility] HMO/PPO Address: [place] [id number] [facility] HMO/PPO Address: [place] [id number] Care Teams Chemical Librarian Relationship Specialty Start Date End Date Alexandro Larios MD [address] [place] [id number] PCP - General Family Medicine 08/09/24
--- OUTSIDE RECORDS SUMMARY | 2025-04-02 08:14 | XMS_ITS | Referral Summary ---
Author Organization [facility] Address [address] [place] [address] Care Team Providers Care Manager Dialysis Name Role Phone Alexandro Larios MD Primary Care Provider [phone] Encounters Date Type Department Care Team Description 03/14/2025 Orders Only [facility] Rheumatology [address] [place] [address] [place] [address] Laurie Vallejo RMA Uveitis (Primary Dx); High risk medication use 03/13/2025 Orders Only [facility] Rheumatology [address] [place] [address] [place] [phone] ProviderMonica MD 03/13/2025 Documentation [facility] Rheumatology [address] [place] [address] [place] [address] Laurie Vallejo RMA Lab Results 03/13/2025 3:30 PM CDT Office Visit [facility] Rheumatology [address] [place] [address] [place] [phone] Jaren Li MD PhD Uveitis (Primary Dx); High risk medication use from Last 3 Months Allergies No known active allergies Medications lansoprazole [...] tablets (10 mg) by mouth daily 06/25/20 025 Discontinued folic acid (FOLVITE) 1 mg tablet Take 1 tablet (1 mg total) by mouth daily 90 tablet 3 08/15/20 025 Discontinued(Re order) predniSONE (DELTASONE) 10 mg tablet 1 tablet (10 mg) 10/26/19 025 Discontinued Active Problems Problem Noted Date Diagnosed Date Uveitis 03/13/2025 High risk medication use 03/13/2025 Social History Tobacco Use Types Packs/Day Years Used Date Smoking Tobacco: Never Passive Smoke Exposure: Never Smokeless Tobacco: Never Tobacco Cessation:Counseling Given: Not Answered Comments Unknown Sex and Gender Information Value Date Recorded Sex Assigned at Not on file Legal Sex Female 1:[address] RE[address] Gender Identity Not on file Sexual Orientation Not on file Last Filed Vital Signs Vital Sign Reading Time Taken Comments Blood Pressure 113/74 03/13/2025 3:09 PM CDT Pulse 85 03/13/2025 3:09 PM CDT Temperature 36.4 C (97.6 F) 03/13/2025 3:09 PM CDT Respiratory Rate - - Oxygen Saturation 100% 11/21/2024 11:[address] REPORTER Inhaled Oxygen Concentration - - Weight 74.4 kg (164 lb) 03/13/2025 3:09 PM CDT Height 172.7 cm (5' 8) 03/13/2025 3:09 PM CDT Body Mass Index 24.94 03/13/2025 3:09 PM CDT Plan of Treatment Not on file Procedures [...] ORDERABLES Sima l Result Performing Organization Address [facility] Co de Phone Number EXTERNAL LAB * CBC with auto differential (03/13/2025 1:14 PM CDT) Blood Historical Provider MD LAB BLOOD ORDERABLES Sima l Result Performing Organization Address [facility] Co de Phone Number EXTERNAL [...] LAB MICROBIOLOGY - GENERAL ORDERABLES Final Result Performing Organization Address [facility] Co de Phone Number [facility] Department [place] [address] from Last 3 Months or Most Recently Relevant to Health Maintenance Insurance [facility] HMO/PPO Address[address] [phone] [facility] HMO/PPO Address: [address] [phone] Care Teams Manager Dialysis Relationship Specialty Start Date End Date Alexandro Larios MD [address] [address] PCP - General Family Medicine 08/09/24
--- OUTSIDE RECORDS SUMMARY | 2025-04-02 08:14 | XMS_ITS | CONTINUITY OF CARE DOCUMENT ---
Author Name yokocarteraguilar johnson Address Unknown Organization [facility] Office Address [address] [place] [address] Phone [phone] Care Team Providers Care Gathering Worker Name Role Phone Italia Meredith MD Unavailable COTY REIS, ALEXANDRO F Unavailable COTY REIS, ALEXANDRO F Unavailable PROBLEMS Condition Status Date Provider Notes Cardiovascular screening active Elizabeth Uriarte INSURANCE PROVIDERS Payer name Policy type / Coverage type Percival red green party ID SELF PAY TREATMENT PLAN Date Name CT, Coronary Calcium Score HISTORY OF PROCEDURES Procedure Date Procedure Name Provider Procedure Notes S tatus CT- Coronary CA score Italia Meredith MD completed
--- OUTSIDE RECORDS SUMMARY | 2025-04-02 08:14 | XMS_ITS | Clinical Summary ---
Author Organization Joyce Navarro on Address [address] [place] [address] [place] [address] Care Team Providers Care Detacker Name Role Phone Unavailable Primary Care Provider [...] ON DAYS 2-5 6 Tablet 08/25/2023 Active HYDROcodone-marzena taminophen (NORCO) 5-325 mg tablet Take 1-2 Tablets by mouth every 4 hours as needed for pain. Max Daily Amount: 12 Tablets 14 Tablet 12/07/2024 3:36 PM AUTO FORMER MACHINE OPERATOR 12/07/2024 Active ibuprofen (MOTRIN) 800 mg tablet Take 1 Tablet (800 mg) by mouth every 6 hours. 28 Tablet 12/26/2024 7:38 PM CDT 12/26/2024 Active azithromycin (Zithromax) 250 mg tablet Take 2 tablets by mouth on day 1, then take 1 tablet by mouth daily for days 2-5 6 Tablet 12/26/2024 7:38 PM CDT 12/26/2024 Active traMADoL (ULTRAM) 50 mg tablet Take 1 Tablet (50 mg) by mouth every 6 hours. 20 Tablet 12/26/2024 7:38 PM CDT 12/26/2024 Active Active Problems No known active problems Encounters Date Type Department Care Team Description 03/13/2025 External Device Data STL ABSTRACTION Provider, Abstract 03/07/2025 External Device Data ST[facility] ABSTRACTION Provider, Abstract 03/06/2025 External Device Data [facility] ABSTRACTION Provider, Abstract 02/20/2025 External Device Data [facility] ABSTRACTION Provider, Abstract 01/03/2025 External Device Data ST[facility] ABSTRACTION Provider, [...] 2:38 PM CDT Height 172.7 cm (5' 8) 03/26/2021 2:38 PM CDT Body Mass Index 25.09 03/26/2021 2:38 PM CDT Plan of Treatment Health Maintenance Due Date Last Done Comments DTAP/TDAP/TD VACCINES (1 - Tdap) 1989 HEPATITIS B VACCINES (1 of 3 - 19+ 3-dose series) 04/18 HPV/Cotest (21-29) 1991 CERVICAL CANCER SCREENING 2000 HPV/Cotest (30-65) 2000 PAP SMEAR 2000 BREAST CANCER SCREENING 2010 COLORECTAL SCREENING 2015 Colorectal Cancer Screening 2015 FIT-DNA Q 3 years 2015 FIT/FOBT Q 1 year 2015 Flex Sig/CT Colonography Q 5 years 2015 ZOSTER VACCINE (1 of 2) 2020 INFLUENZA VACCINE (#1) 2024 Insurance [facility] OPTIONS PPO RX [employer] RX Member Subscriber Plan / Payer (Ef fective 2022-Present) Name:Yanelis Larios Relation to Subscriber:Self Name:Yanelis Larios Subscriber ID:Not on file Payer ID:Not on file Type:RX Commercial Address: AGUSTIN BARRIOS RX [facility]
== END 2025-04-02 08:09 | disposition home or self-care (01) ==
PROVIDERS: PCP Family Medicine; Visit Provider Family Medicine
DX: Z12.31 Encounter for screening mammogram for malignant neoplasm of breast (principal)
CPT/HCPCS: 77063; 77067

== ENCOUNTER 2025-04-18 10:33 | Outpatient (CLI) | payer OTHER, SELFPAY ==
--- OUTSIDE RECORDS SUMMARY | 2025-04-18 10:45 | XMS_ITS | Clinical Summary ---
Author Organization [facility] Address [address] [place] [address] Care Team Providers Care Typing Checker Name Role Phone Alexandro Larios MD Primary Care Provider [phone] Allergies No known active allergies Medications lansoprazole (PREVACID) 30 mg capsule Take 1 capsule (30 mg total) by mouth daily Active ondansetron (ZOFRAN) 4 mg tablet Take 1 tablet (4 mg total) by mouth every 6 (six) hours as needed for nausea or vomiting 30 tablet 10/16/2024 Active methotrexate 2.5 mg tabletIndicatio ns:autoimmune disease Take 8 tablets (20 mg total) by mouth every 7 days 96 tablet 3 11/21/2024 11/21/19 26 Active folic acid (FOLVITE) 1 mg tablet Take 3 tablets (3 mg total) by mouth daily 270 tablet 3 03/13/2025 03/13/20 26 Active Active Problems Problem Noted Date Diagnosed Date Uveitis 03/13/2025 High risk medication use 03/13/2025 Encounters Date Type Department Care Team Description 03/14/2025 Orders Only [facility] Rheumatology [facility] 5th [place] [address] Laurie Vallejo RMA Uveitis (Primary Dx); High risk medication use 03/13/2025 3:30 PM CDT Office Visit [facility] Rheumatology [address] [facility] 5th [place] [address] [place] [address] Jaren Li MD PhD Uveitis (Primary Dx); High risk medication use 03/13/2025 Orders Only [facility] Rheumatology [address] [facility] 5th [place] [address] [place] [id number] ProviderMonica MD 03/13/2025 Documentation [facility] Rheumatology [address] 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 Gender Identity Not on file Sexual Orientation Not on file Obstetrics History Last Filed Vital Signs Vital Sign Reading Time Taken Comments Blood Pressure 113/74 03/13/2025 3:09 PM CDT Pulse 85 03/13/2025 3:09 PM CDT Temperature 36.4 C (97.6 F) 03/13/2025 3:09 PM CDT Respiratory Rate - - Oxygen Saturation 100% 11/21/2024 11:01 AM PROCEDURE MANAGER Inhaled Oxygen Concentration - - Weight 74.4 [...] (1 of 2) 1989 Covid-19 Vaccine ( - season) 2024 11/05/2021, 01/07/2021, 12/17/2020 Influenza [...] MD LAB BLOOD ORDERABLES Sima l Result EXTERNAL LAB * CBC with auto differential (03/13/2025 1:14 PM CDT) Blood Historical Provider MD LAB BLOOD ORDERABLES Sima l Result EXTERNAL LAB * Hepatitis C antibody Blood (08/15/2024 11:08 AM CDT) Hep C Ab Nonreactive Nonreactive Comment:Antibodies to HCV no t detected. Does NOT exclude the possibility of recent exposure to HCV. Current interpretive data was last revised on 22 Blood 08/15/2024 11:0 8 AM CDT 08/15/2024 11:45 AM CDT Jaren Li MD PhD LAB MICROBIOLOGY - GENERAL ORDERABLES Final Result [facility] One [facility] [place] [address] from Last 3 Months or Most Recently Relevant to Health Maintenance Insurance [facility] Care Teams Typing Checker Relationship Specialty Start Date End Date Alexandro Larios MD [address] [place] [address] PCP - General Family Medicine 08/09/24
--- OUTSIDE RECORDS SUMMARY | 2025-04-18 10:45 | XMS_ITS | Clinical Summary ---
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 12/07/2024 Active ibuprofen (MOTRIN) 800 mg tablet [...] Encounters Date Type Department Care Team Description 04/03/2025 External Device Data ST[facility] ABSTRACTION Provider, Abstract 03/13/2025 External Device Data ST[facility] ABSTRACTION Provider, [...] 2) 2020 INFLUENZA VACCINE (#1) 2024 Insurance [facility] OPTIONS PPO RX [employer] RX Member Subscriber Plan / Payer (Ef fective 2022-Present) Name:Yanelis Larios Relation to Subscriber:Self Name:Yanelis Larios Subscriber ID:Not on file Payer ID:Not on file Type:RX Commercial Address: AGUSTIN BARRIOS RX [facility]
--- OUTSIDE RECORDS SUMMARY | 2025-04-18 10:45 | XMS_ITS | Referral Summary ---
Author Organization [facility] Address [address] [place] [address] Care Team Providers Care Carpenter Inspector Name Role Phone Alexandro Larios MD Primary Care Provider [phone] Encounters Date Type Department Care Team Description 03/14/2025 Orders Only [facility] Rheumatology [address] [place] [address] [place] [phone] Laurie Vallejo RMA Uveitis (Primary Dx); High risk medication use 03/13/2025 Orders Only [facility] Rheumatology [address] [place] [address] [place] [phone] ProviderMonica MD 03/13/2025 Documentation [facility] Rheumatology [address] [place] [address] [place] [phone] Laurie Vallejo RMA Lab Results 03/13/2025 3:30 PM CDT Office Visit [facility] Rheumatology [address] [place] [address] [place] [address] Jaren Li MD PhD Uveitis (Primary Dx); [...] 7 days 96 tablet 3 11/21/2024 11/21/19 Active folic acid (FOLVITE) 1 mg tablet [...] on file 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 Gender Identity Not on file Sexual Orientation Not on file Last Filed Vital Signs Vital Sign Reading Time Taken Comments Blood Pressure 113/74 03/13/2025 3:09 PM CDT Pulse 85 03/13/2025 3:09 PM CDT Temperature 36.4 C (97.6 F) 03/13/2025 3:09 PM CDT Respiratory Rate - - Oxygen Saturation 100% 11/21/2024 11:01 AM RN NEW GRAD Inhaled Oxygen Concentration - - Weight 74.4 [...] Results * CMP (03/13/2025 1:14 PM CDT) us Historical Provider LAB BLOOD ORDERABLES Sima argueta Result EXTERNAL LAB * CBC with auto differential (03/13/2025 1:14 PM CDT) Blood us Historical Provider MD LAB BLOOD ORDERABLES [...] MICROBIOLOGY - GENERAL ORDERABLES Final Result [facility] One [facility] Department [place] [address] from Last 3 Months or Most Recently Relevant to Health Maintenance Insurance [facility] Care Teams Carpenter Inspector Relationship Specialty Start Date End Date Alexandro Larios MD [address] [place] [address] PCP - General Family Medicine 08/09/24
[2025-04-18 12:28] LABS: Hematocrit 41.8 % (37.0-47.0); Hemoglobin 13.6 g/dL (12.0-15.0); Immature Granulocyte Percent A 1.5 % (0-0.5); Lymphocytes Absolute Auto 1.60 K/mm3 (0.9-3.2); Mean Corpuscular HGB Conc 32.5 g/dl (32-36); Mean Corpuscular Hemoglobin 30.9 pg (26-34); Mean Corpuscular Volume 95.0 fl (80-100); Nucleated Red Blood Cells Absolute Auto 0.000 K/mm3 (0.0-0.012); Nucleated Red Blood Cells Perc 0.0 % (0.0-0.2); Platelet Count Result 227 k/mm3 (150-375); Red Blood Count 4.40 M/mm3 (4.2-5.4); White Blood Count 7.4 K/mm3 (4.5-10.0)
[2025-04-18 13:06] LABS: Alanine Aminotransferase 30 U/L (6-35); Albumin Level 4.5 g/dL (3.5-5.1); Alkaline Phosphatase 52 U/L (38-126); Anion Gap 9 mmol/L (4-12); Aspartate Amino Transferase 37 U/L (14-36); Bilirubin,Total 0.3 mg/dL (0.2-1.3); Blood Urea Nitrogen 26 mg/dL (7-17); CRP. < 0.5 mg/dL (<1.0); Calcium 10.2 mg/dL (8.4-10.2); Carbon Dioxide 26 mmol/L (22-30); Chloride 104 mmol/L (98-107); Estimated Glomerular Filt Rate > 60; Glucose 86 mg/dL (65-110); Potassium 3.7 mmol/L (3.4-5.0); Sodium 139 mmol/L (137-145); Total Protein 7.3 g/dL (6.3-8.2)
== END 2025-04-18 10:34 | disposition home or self-care (01) ==
LOC: ANHGOSHLAB 10:36
PROVIDERS: PCP Family Medicine
DX: H20.9 Unspecified iridocyclitis (principal); Z79.899 Other long term (current) drug therapy
CPT/HCPCS: 36415; 80053; 85025; 85652; 86140

== ENCOUNTER 2025-06-20 11:26 | Outpatient (CLI) | payer OTHER, SELFPAY ==
--- OUTSIDE RECORDS SUMMARY | 2025-06-20 13:15 | XMS_ITS | Clinical Summary ---
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 12/07/2024 Active ibuprofen (MOTRIN) 800 mg tablet [...] Encounters Date Type Department Care Team Description 05/22/2025 External Device Data ST[facility] ABSTRACTION Provider, Abstract 05/02/2025 External Device Data [facility] ABSTRACTION Provider, Abstract 05/01/2025 External Device Data [facility] ABSTRACTION Provider, Abstract 04/03/2025 External Device Data STL ABSTRACTION Provider, [...] (1 of 2) 2020 INFLUENZA VACCINE (#1) 2025 Insurance [facility] OPTIONS PPO RX [employer] RX Member Subscriber Plan / Payer (Ef fective 2022-Present) Name:Yanelis Larios Relation to Subscriber:Self Name:Yanelis Larios Subscriber ID:Not on file Payer ID:Not on file Type:RX Commercial Address: JOSH BLANCAS [facility]IN RX [facility]
--- OUTSIDE RECORDS SUMMARY | 2025-06-20 13:15 | XMS_ITS | Clinical Summary ---
Author Organization [facility] Address [address] [place] [address] Care Team Providers Care Lavatory Attendant Name Role Phone Alexandro Larios MD Primary Care Provider [phone] Allergies No known active allergies Medications lansoprazole [...] Encounters Date Type Department Care Team Description [facility] [address] [facility] 5th [place] [address] ProviderMonica MD 04/25/2025 Documentation [facility] [address] [facility] 5th [place] [address] [place] [address] Laurie Vallejo RMA Lab Results from Last [...] on file 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 Gender Identity Not on file Sexual Orientation Not on file Obstetrics History Last Filed Vital Signs Vital Sign Reading Time Taken Comments Blood Pressure 113/74 03/13/2025 3:09 PM CDT Pulse 85 03/13/2025 3:09 PM CDT Temperature 36.4 C (97.6 F) 03/13/2025 3:09 PM CDT Respiratory Rate - - Oxygen Saturation 100% 11/21/2024 11:01 AM DOOR MACHINE OPERATOR Inhaled Oxygen Concentration - - Weight 74.4 [...] 2024 11/05/2021, 01/07/2021, 12/17/2020 Influenza Vaccine (#1) 2025 Hepatitis B Screening Completed 08/15/2024 Hepatitis C Screening Completed 08/15/2024 Procedures Procedure Name Priority Date/Time Associated Diagnosis Comments CBC WITH AUTO DIFFERENTIAL Routine 04/25/2025 10:45 AM CDT CMP Routine 04/25/2025 10:45 AM CDT CRP (ACUTE PHASE) Routine 04/25/2025 10: 45 AM CDT ESR - SED RATE - ERYTHROCYTE SEDIMENTATION RATE Routine 04/25/2025 10:45 AM CDT HEPATITIS C ANTIBODY Routine 08/15/2024 11:08 AM CDT Uveitis from Last 3 Months or Most Recently Relevant to Health Maintenance Results * ESR - Sed Rate - Erythrocyte Sedimentation Rate (04/25/2025 10:45 AM CDT) Historical Provider MD LAB BLOOD ORDERABLES Sima l Result EXTERNAL LAB * CMP (04/25/2025 10:45 AM CDT) Historical Provider MD LAB BLOOD ORDERABLES Sima l Result EXTERNAL LAB * CBC with auto differential (04/25/2025 10:45 AM CDT) Blood Result [facility] Historical Provider MD LAB BLOOD ORDERABLES Sima l Result Performing Organization Address City/[facility] Co de Phone Number EXTERNAL LAB * CRP (acute phase) (04/25/2025 10:45 AM CDT) Blood Result [facility] Historical Provider MD LAB BLOOD ORDERABLES Sima l Result Performing Organization Address City/[facility] Co de Phone Number EXTERNAL LAB * Hepatitis C antibody Blood (08/15/2024 11:08 AM CDT) Hep C Ab Nonreactive Nonreactive Comment:Antibodies to HCV no t detected. Does NOT exclude the possibility of recent exposure to HCV. Current interpretive data was last revised on 22 Blood 08/15/2024 11:0 8 AM CDT 08/15/2024 11:45 AM CDT Result [facility] Jaren Li MD PhD LAB MICROBIOLOGY - GENERAL ORDERABLES Final Result [facility] [address] [facility] Department [place] [address] from Last 3 Months or Most Recently Relevant to Health Maintenance [place] [address] [place] [address] Care Teams Lavatory Attendant Relationship Specialty Start Date End Date Alexandro Larios MD [address] [place] [address] PCP - General Family Medicine 08/09/24
[2025-06-20 13:34] LABS: Hematocrit 41.1 % (37.0-47.0); Hemoglobin 13.4 g/dL (12.0-15.0); Immature Granulocyte Percent A 0.8 % (0-0.5); Lymphocytes Absolute Auto 1.26 K/mm3 (0.9-3.2); Mean Corpuscular HGB Conc 32.6 g/dl (32-36); Mean Corpuscular Hemoglobin 31.3 pg (26-34); Mean Corpuscular Volume 96.0 fl (80-100); Nucleated Red Blood Cells Absolute Auto 0.000 K/mm3 (0.0-0.012); Nucleated Red Blood Cells Perc 0.0 % (0.0-0.2); Platelet Count Result 234 k/mm3 (150-375); Red Blood Count 4.28 M/mm3 (4.2-5.4); White Blood Count 8.9 K/mm3 (4.5-10.0)
[2025-06-20 13:36] LABS: Alanine Aminotransferase 30 U/L (6-35); Albumin Level 4.5 g/dL (3.5-5.1); Alkaline Phosphatase 73 U/L (38-126); Anion Gap 10 mmol/L (4-12); Aspartate Amino Transferase 36 U/L (14-36); Bilirubin,Total 0.4 mg/dL (0.2-1.3); Blood Urea Nitrogen 21 mg/dL (7-17); Calcium 9.9 mg/dL (8.4-10.2); Carbon Dioxide 26 mmol/L (22-30); Chloride 102 mmol/L (98-107); Estimated Glomerular Filt Rate > 60; Glucose 81 mg/dL (65-110); Potassium 4.5 mmol/L (3.4-5.0); Sodium 138 mmol/L (137-145); Total Protein 7.4 g/dL (6.3-8.2)
== END 2025-06-20 11:27 | disposition home or self-care (01) ==
LOC: ANHGOSHLAB 11:27
PROVIDERS: PCP Family Medicine; Visit Provider Family Medicine
DX: R10.9 Unspecified abdominal pain (principal); K57.32 Diverticulitis of large intestine without perforation or abscess without bleeding
CPT/HCPCS: 36415; 80053; 85025

== ENCOUNTER 2025-06-27 18:57 | Emergency (ER) | payer OTHER, SELFPAY ==
--- NOTE | ~2025-06-27 | CT_ITS ---
EXAMINATION: CT abdomen pelvis w con DATE: 06/27/2025 20:54 INDICATION: Left lower quadrant pain migrating to the right lower quadrant. History of diverticulitis. TECHNIQUE: Computed tomography (CT) of the abdomen and pelvis was performed with 100 cc Omnipaque 350 intravenous contrast. The dose-length product was 462.49 mGy-cm. Automated exposure control and iterative reconstruction technique were employed. COMPARISON: CT dated 09/13/2021. FINDINGS: Dependent atelectasis. Moderate size hiatal hernia. Fatty infiltration of the liver. The spleen, pancreas, adrenal glands and kidneys are unremarkable. Gallbladder is present. Nonobstructive bowel gas pattern. Normal appendix. Colonic diverticulosis without evidence for diverticulitis. Mild lumbar spondylosis. No significant vascular abnormality. No lymphadenopathy. No free air or free fluid. IMPRESSION: 1. No acute abdominal abnormality. Reviewed, dictated and finalized at location O.
--- OUTSIDE RECORDS SUMMARY | 2025-06-27 18:59 | XMS_ITS | Clinical Summary ---
Author Organization [facility] Address [address] [place] [address] Care Team Providers Care Atmospheric Physics Professor Name Role Phone Alexandro Larios MD Primary Care Provider [phone] Allergies No known active allergies Medications lansoprazole [...] Department Care Team Description 04/25/2025 [facility] [address] [facility] 5th [place] [address] ProviderMonica MD 04/25/2025 Documentation [facility] [address] [facility] 5th [place] [address] [place] [address] Laurie Vallejo RMA Lab Results [...] on file 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 Female 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 Gender Identity Not on file Sexual Orientation Not on file Obstetrics History Last Filed Vital Signs Vital Sign Reading Time Taken Comments Blood Pressure 113/74 03/13/2025 3:09 PM CDT Pulse 85 03/13/2025 3:09 PM CDT Temperature 36.4 C (97.6 F) 03/13/2025 3:09 PM CDT Respiratory Rate - - Oxygen Saturation 100% 11/21/2024 11:01 AM HEARING AID CONSULTANT Inhaled Oxygen Concentration - - Weight 74.4 [...] 2) 1989 Covid-19 Vaccine ( - season) 2025 11/05/2021, 01/07/2021, 12/17/2020 Influenza Vaccine (#1) 2025 [...] differential (04/25/2025 10:45 AM CDT) Blood Result [facility] Historical Provider MD LAB BLOOD ORDERABLES Sima l Result Performing Organization Address City/[facility] Co de Phone Number EXTERNAL LAB * CRP (acute phase) (04/25/2025 10:45 AM CDT) Blood Result [facility] Historical Provider MD LAB BLOOD ORDERABLES Sima l Result Performing Organization Address City/[facility] Co de Phone Number EXTERNAL LAB * Hepatitis C antibody Blood (08/15/2024 11:08 AM CDT) Hep C Ab Nonreactive Nonreactive Comment:Antibodies to HCV no t detected. Does NOT exclude the possibility of recent exposure to HCV. Current interpretive data was last revised on 22 Blood 08/15/2024 11:0 8 AM CDT 08/15/2024 11:45 AM CDT Result [facility] Jaren Li MD PhD LAB MICROBIOLOGY - GENERAL ORDERABLES Final Result [facility] One [facility] Department [place] [address] from Last 3 Months or Most Recently Relevant to Health Maintenance Insurance [facility] [employer] Address: [address] [address] [place] [address] [facility] [employer] Address: [address] [address] Care Teams Atmospheric Physics Professor Relationship Specialty Start Date End Date Alexandro Larios MD [address] [place] [address] PCP - General Family Medicine 08/09/24
[2025-06-27 19:19] VITALS: BP 109/66; PULSE 77; RESP 16; TEMP 37; O2SAT 98
[2025-06-27 19:59] LABS: Hematocrit 40.1 % (37.0-47.0); Hemoglobin 13.1 g/dL (12.0-15.0); Immature Granulocyte Percent A 1.3 % (0-0.5); Lymphocytes Absolute Auto 1.61 K/mm3 (0.9-3.2); Mean Corpuscular HGB Conc 32.7 g/dl (32-36); Mean Corpuscular Hemoglobin 31.7 pg (26-34); Mean Corpuscular Volume 97.1 fl (80-100); Nucleated Red Blood Cells Absolute Auto 0.000 K/mm3 (0.0-0.012); Nucleated Red Blood Cells Perc 0.0 % (0.0-0.2); Platelet Count Result 223 k/mm3 (150-375); Red Blood Count 4.13 M/mm3 (4.2-5.4); White Blood Count 5.5 K/mm3 (4.5-10.0)
[2025-06-27 20:04] LABS: Add Urine Microscopic? YES; Appearance Urine Clear (Clear); Glucose Urine UA Negative (Negative); Leukocyte Esterase Ur Trace LEU/UL (Negative); Nitrate Urine Negative (Negative); Non Pathogenic Casts 0-2; Specific Grav Ur 1.014 (1.001-1.035)
[2025-06-27 20:09] LABS: Alanine Aminotransferase 54 U/L (6-35); Albumin Level 4.5 g/dL (3.5-5.1); Alkaline Phosphatase 63 U/L (38-126); Anion Gap 8 mmol/L (4-12); Aspartate Amino Transferase 44 U/L (14-36); Bilirubin,Total 0.3 mg/dL (0.2-1.3); Blood Urea Nitrogen 22 mg/dL (7-17); Calcium 9.2 mg/dL (8.4-10.2); Carbon Dioxide 28 mmol/L (22-30); Chloride 102 mmol/L (98-107); Estimated CRCL calculation 57 ml/min; Estimated Glomerular Filt Rate 58; Glucose 87 mg/dL (65-110); Lipase 225 U/L (23-300); Potassium 3.8 mmol/L (3.4-5.0); Sodium 138 mmol/L (137-145); Total Protein 7.1 g/dL (6.3-8.2)
--- OUTSIDE RECORDS SUMMARY | 2025-06-27 20:14 | XMS_ITS | Clinical Summary ---
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
--- OUTSIDE RECORDS SUMMARY | 2025-06-27 20:14 | XMS_ITS | Clinical Summary ---
Author Organization [facility] Address [address] [place] [address] Care Team Providers Care Monomer Recovery Supervisor Name Role Phone Alexandro Larios MD Primary Care Provider [phone] Allergies No known active allergies Medications lansoprazole [...] Department Care Team Description 04/25/2025 [facility] [address] [facility] 5th [place] [address] ProviderMonica MD 04/25/2025 Documentation [facility] [address] [facility] 5th [place] [address] [place] [address] Laurie Vallejo RMA Lab Results [...] on file 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 Gender Identity Not on file Sexual Orientation Not on file Obstetrics History Last Filed Vital Signs Vital Sign Reading Time Taken Comments Blood Pressure 113/74 03/13/2025 3:09 PM CDT Pulse 85 03/13/2025 3:09 PM CDT Temperature 36.4 C (97.6 F) 03/13/2025 3:09 PM CDT Respiratory Rate - - Oxygen Saturation 100% 11/21/2024 11:01 AM JEWELRY BEARING MAKER Inhaled Oxygen Concentration - - Weight 74.4 [...] differential (04/25/2025 10:45 AM CDT) Blood Result [facility] Historical Provider MD LAB BLOOD ORDERABLES Sima l Result Performing Organization Address City/[facility] Co de Phone Number EXTERNAL LAB * CRP (acute phase) (04/25/2025 10:45 AM CDT) Blood Result [facility] Historical Provider MD LAB BLOOD ORDERABLES Sima l Result Performing Organization Address City/[facility] Co de Phone Number EXTERNAL LAB * Hepatitis C antibody Blood (08/15/2024 11:08 AM CDT) Hep C Ab Nonreactive Nonreactive Comment:Antibodies to HCV no t detected. Does NOT exclude the possibility of recent exposure to HCV. Current interpretive data was last revised on 22 Blood 08/15/2024 11:0 8 AM CDT 08/15/2024 11:45 AM CDT Result [facility] Jaren Li MD PhD LAB MICROBIOLOGY - GENERAL ORDERABLES Final Result [facility] One [facility] Department [place] [address] from Last 3 Months or Most Recently Relevant to Health Maintenance [place] [place] [address] Care Teams Monomer Recovery Supervisor Relationship Specialty Start Date End Date Alexandro Larios MD [address] [place] [address] PCP - General Family Medicine 08/09/24
[2025-06-27] MEDS: LACTATED RINGERS 1,000 ML 999 ML IV CONT (21:10)
[2025-06-27 21:25] LABS: Influenza A QL RT-PCR Negative (Negative); Influenza B QL RT-PCR Negative (Negative); RSV RNA, RT-PCR Negative (Negative); SARS-CoV-2 RNA PCR Negative (Negative)
--- NOTE | 2025-06-27 21:34 | ED.GENADULT ---
HPI - General Adult General Chief complaint: Abdominal Pain Stated complaint: RLQ ABD PAIN Time Seen by Provider: 06/27/25 19:44 History of Present Illness HPI narrative: This is a pleasant 55-year-old female presenting for right lower quadrant abdominal pain. Patient developed left lower quadrant pain 10 days ago. She has a history of diverticulitis so her who is a physician prescribed her Cipro and Flagyl. That pain has been improving but over the last several days she has felt weak and fatigued and then developed twinges in her right lower quadrant. They were concerned about appendicitis. Patient denies fevers chills nausea vomiting or diarrhea. No chest pain difficulty breathing. No urinary symptoms. She has not been drinking alcohol. Patient is on methotrexate for an autoimmune eye disorder. Related Data Home Medications ?Medication ?Instructions ?Recorded ?Confirmed ?Last Taken ?Type famotidine-Ca carb-mag hydrox 10 1 tablet PO DAILY PRN Heartburn 09/13/21 01/17/25 12/06/24 History mg-800 mg-165 mg chewable tablet (Pepcid Complete) ferrous sulfate 325 mg (65 mg 60 mg PO DAILY 09/13/21 01/17/25 12/03/24 History iron) tablet (Iron (ferrous sulfate)) vitamin A-vitamin C-vit E-min 1 tablet PO DAILY 09/13/21 01/17/25 12/03/24 History tablet vitamin B complex (B 1,000 tablet PO DAILY 09/13/21 01/17/25 12/03/24 History Complex-Vitamin B12 tablet) folic acid 20 mg capsule 20 mg PO DAILY 11/20/24 01/17/25 12/03/24 History Lactobacillus acidophilus 10 100 mmu cells PO DAILY 11/23/24 01/17/25 Unknown History billion cell capsule (Probacap) vitamin A-vitamin C-vit E-min 1 tablet PO DAILY 11/23/24 01/17/25 12/03/24 History tablet (Ocutabs tablet) Allergies Allergy/AdvReac Type Severity Reaction Status Date / Time No Known Allergies Allergy Verified 06/27/25 19:27 [facility] Past Medical History Medical History Right foot pain Vitamin B12 deficiency Fatigue Sigmoid diverticulitis (~08/2021) Abdominal pain Surgical History Surgical History Status post arthroscopic partial lateral meniscectomy of right knee (~12/07/24) No history of previous surgery Social History Social History Smoking status: Never smoker Second hand tobacco smoke exposure: No Alcohol intake: current Drinks per week: 1 Alcohol use details: less than 1-2 a month Substance use: never Substance use type: does not use Do You Feel Safe in your Home?: Yes Lack of Transportation: No Lack of Food: Never True Current Housing: I Have Housing Concerned About Future Housing: No Difficulty Paying Gas/Electric Bills: No Difficulty Paying for Meds: No Currently Unemployed: No Education: Master's Degree or Higher Difficulty w/ Childcare or Family Care: No Living arrangements: with family Spiritual care concerns: No Exam Narrative: APPEARANCE: No apparent distress. Pleasant, polite Head: atraumatic. EYES: EOMI, NOSE: Atraumatic NECK: Trachea midline RESPIRATORY: No increased rate of breathing clear to auscultation CARDIOVASCULAR: RRR, no peripheral edema ABDOMINAL: Non-distended soft nontender no guarding or rebound MUSCULOSKELETAl: No obvious deformities NEURO: Alert. Moving 4/4 extremities SKIN:: Warm, dry. Normal color PSYCHIATRIC: Normal affect Course Vital Signs Vital signs: Vital Signs Temperature 98.6 F 06/27/25 19:19 Pulse Rate 77 06/27/25 19:19 Respiratory Rate 16 06/27/25 19:19 Blood Pressure 109/66 06/27/25 19:19 Pulse Oximetry 98 06/27/25 19:19 Oxygen Delivery Room Air 06/27/25 19:19 Temperature 98.6 F 06/27/25 19:19 Pulse Rate 77 06/27/25 19:19 Respiratory Rate 16 06/27/25 19:19 Blood Pressure 109/66 06/27/25 19:19 Pulse Oximetry 98 06/27/25 19:19 Oxygen Delivery Room Air 06/27/25 19:19 Medical Decision Making MDM Narrative Medical decision making narrative: -Course: 55-year-old female presenting with right lower quadrant pain. Laboratory studies within normal limits. CT abdomen pelvis with no acute findings. Vital signs are stable. Abdominal exam is benign. Patient was updated results and is reassured. Give discharged with return precautions. -DDX includes but is not limited to: Diverticulitis, appendicitis, colitis, complication from diverticulitis Vital Signs Vital Signs: Vital Signs Temperature 98.6 F 06/27/25 19:19 Pulse Rate 77 06/27/25 19:19 Respiratory Rate 16 06/27/25 19:19 Blood Pressure 109/66 06/27/25 19:19 Pulse Oximetry 98 06/27/25 19:19 Oxygen Delivery Room Air 06/27/25 19:19 Temperature 98.6 F 06/27/25 19:19 Pulse Rate 77 06/27/25 19:19 Respiratory Rate 16 06/27/25 19:19 Blood Pressure 109/66 06/27/25 19:19 Pulse Oximetry 98 06/27/25 19:19 Oxygen Delivery Room Air 06/27/25 19:19 Lab Data 06/27/25 19:50 06/27/25 19:50 Labs: Lab Results 06/27/25 06/27/25 Range/Units 19:50 20:45 WBC 5.5 (4.5-10.0) K/mm3 RBC 4.13 L (4.2-5.4) M/mm3 Hgb 13.1 (12.0-15.0) g/dL Hct 40.1 (37.0-47.0) % MCV 97.1 (80-100) fl MCH 31.7 (26-34) pg MCHC 32.7 (32-36) g/dl RDW 12.6 (11.5-14.5) % Plt Count 223 (150-375) k/mm3 MPV 8.7 (7.4-10.4) fl Immature Gran % (Auto) 1.3 H (0-0.5) % Neut % (Auto) 55.5 (45.5-73.1) % Lymph % (Auto) 29.5 (18.3-44.2) % Rhea % (Auto) 10.1 H (2.6-8.5) % Eos % (Auto) 3.1 (0-4.4) % Baso % (Auto) 0.5 (0.2-1.2) % Lymph # (Auto) 1.61 (0.9-3.2) K/mm3 Rhea # (Auto) 0.6 (0.1-0.6) K/mm3 Eos # (Auto) 0.2 (0-0.3) K/mm3 Baso # (Auto) 0.0 (0.0-0.1) K/mm3 Abs Immat Gran (auto) 0.07 H (0.00-0.031) K/mm3 Absolute Neuts (auto) 3.0 (1.3-6.7) K/mm3 Absolute Nucleated RBC 0.000 (0.0-0.012) K/mm3 Nucleated RBC % 0.0 (0.0-0.2) % Sodium 138 (137-145) mmol/L Potassium 3.8 (3.4-5.0) mmol/L Chloride 102 (98-107) mmol/L Carbon Dioxide 28 (22-30) mmol/L Anion Gap 8 (4-12) mmol/L BUN 22 H (7-17) mg/dL Creatinine 1.00 (0.7-1.0) mg/dL Estim Creat Clear Calc 57 ml/min Estimated GFR 58 L (59 - ) Glucose 87 (65-110) mg/dL Calcium 9.2 (8.4-10.2) mg/dL Total Bilirubin 0.3 (0.2-1.3) mg/dL AST 44 H (14-36) U/L ALT 54 H (6-35) U/L Alkaline Phosphatase 63 (38-126) U/L Total Protein 7.1 (6.3-8.2) g/dL Albumin 4.5 (3.5-5.1) g/dL Lipase 225 (23-300) U/L Urine Color Yellow (Yellow) Urine Appearance Clear (Clear) Urine pH 7.0 (5.0-9.0) Ur Specific Ragland 1.014 (1.001-1.035) Urine Protein Negative (Negative) mg/dL Urine Glucose (UA) Negative (Negative) mg/dL Urine Ketones Negative (Negative) mg/dL Ur Blood (Man) Negative (Negative) Urine Nitrate Negative (Negative) Urine Bilirubin Negative (Negative) Urine Urobilinogen 0.2 (<2.0) mg/dL Leukocyte Esterase Rfl Trace H (Negative) SPENCER/UL Urine RBC 0-2 (0-2) /hpf Urine WBC 0-5 (0-3) /hpf Ur Squamous Epith Cells None seen (Few) /hpf Urine Bacteria None seen /hpf Urine Casts 0-2 Influenza A (RT-PCR) Negative (Negative) Influenza B (RT-PCR) Negative (Negative) RSV (RT-PCR) Negative (Negative) SARS-CoV-2 RNA (RT-PCR) Negative (Negative) Discharge Plan Discharge Clinical Impression: Abdominal pain Patient Disposition: Home Condition: Stable Instructions: Antibiotic Form, Abdominal Pain (ED) Additional Instructions: You were seen in the emergency department for abdominal pain. Your workup here was reassuring. Her laboratory studies were within normal limits. Her CT abdomen pelvis did not show any acute findings. If you develop severe abdominal pain fevers or any new symptoms please return to the ED for re-evaluation. Patient Language: Urdu Prescriptions: No Action folic acid 20 mg capsule 20 mg PO DAILY Probacap 10 billion cell capsule 100 mmu cells PO DAILY Ocutabs Tablet 1 tablet PO DAILY ferrous sulfate [Iron (ferrous sulfate)] 325 mg (65 mg iron) Tablet 60 mg PO DAILY vitamin B complex [B Complex-Vitamin B12] Tablet 1,000 tablet PO DAILY Rx Instructions: pt takes liquid sublingually vitamin A-vitamin C-vit E-min Tablet 1 tablet PO DAILY Pepcid Complete 10-800-165 mg Tablet,Chewable 1 tablet PO DAILY PRN (Reason: Heartburn) lansoprazole 30 mg capsule,delayed release(DR/EC) See Rx Instructions .ROUTE .COMPLEX Qty: 180 1RF Dose Instruction: TAKE 1 CAPSULE BY MOUTH TWICE DAILY Rx Instructions: TAKE 1 CAPSULE BY MOUTH TWICE DAILY levofloxacin 500 mg tablet 500 mg PO DAILY 10 Days Qty: 10 0RF Rx Instructions: Patient to hold methotrexate while taking Levaquin metronidazole 500 mg tablet 500 mg PO Q8H 10 Days Qty: 30 0RF Follow-up/Referrals: Enio Larios MD [Primary Care Provider, Family Practice] - 3 Days Referral Note: Abdominal pain
[2025-06-27 21:58] VITALS: BP 122/79; PULSE 68; RESP 18; O2SAT 99
== END 2025-06-27 21:58 | disposition home or self-care (01) ==
PROVIDERS: Emergency Provider Emergency Medicine; PCP Family Medicine
DX: R10.31 Right lower quadrant pain (principal); Z20.822 Contact with and (suspected) exposure to COVID-19; E53.8 Deficiency of other specified B group vitamins; Z79.631 Long term (current) use of antimetabolite agent
CPT/HCPCS: 36415; 74177; 80053; 81001; 83690; 85025; 87637; 96360; 99284; J7120; Q9967